=== PATIENT | male | born 1970 | race Hispanic/Latino ===

== ENCOUNTER 2019-02-24 15:53 | Emergency (ER) | payer MEDICARE ==
[2019-02-24] MEDS ORDERED: DEXAMETHASONE SOD PHOSPHATE 10MG/ML 1ML VIAL ONE (16:18)
[2019-02-24] MEDS ORDERED: DIPHENHYDRAMINE HCL 25 MG CAPSULE ONE (16:18)
== END 2019-02-24 18:03 | disposition home or self-care (01) ==
LOC: EDH 15:53
DX: J02.9 Acute pharyngitis, unspecified (principal); L25.9 Unspecified contact dermatitis, unspecified cause; E11.9 Type 2 diabetes mellitus without complications; I10 Essential (primary) hypertension; E78.5 Hyperlipidemia, unspecified; F32.9 Major depressive disorder, single episode, unspecified; Z98.890 Other specified postprocedural states
CPT/HCPCS: 87880; 96372; 99283; J1100; Q0163

== ENCOUNTER 2019-02-24 18:42 | Emergency (ER) | payer MEDICARE ==
[2019-02-24] MEDS ORDERED: LORAZEPAM 2 MG/ML 1 ML VIAL ONE ×2 (18:45→18:49)
[2019-02-24 19:10] LABS: BASOPHILS % (AUTO) 0.5 % (0.0-5.0); EOSINOPHILS % (AUTO) 0.6 % (0.0-8.0); HEMATOCRIT 41.3 % (42-54); LYMPHOCYTES % (AUTO) 16.1 % (21.0-51.0); MEAN CORPUSCULAR HEMOGLOBIN 34.3 pg (27.0-33.0); MEAN CORPUSCULAR HGB CONC 35.5 g/dL (32.0-36.0); MEAN CORPUSCULAR VOLUME 96.5 fL (79-99); MONOCYTES % (AUTO) 3.2 % (3.0-13.0); NEUTROPHILS % (AUTO) 79.6 % (40.0-77.0); NUCLEATED RED BLOOD CELLS 0.1 % (0.0-0.19); PLATELET COUNT (AUTO) 144 K/uL (130-400); RED BLOOD CELL COUNT(AUTO) 4.28 MIL/uL (4.50-6.20); RED CELL DISTRIBUTION WIDTH 13.2 % (11.0-15.5); WHITE BLOOD COUNT (AUTO) 4.5 K/uL (4.8-10.8)
[2019-02-24 19:21] LABS: POTASSIUM 3.8 mmol/L (3.5-5.1)
[2019-02-24 19:26] LABS: INR 0.93 (0.85-1.15); PROTHROMBIN TIME 9.8 SEC (9.6-11.6)
[2019-02-24 19:30] LABS: B-TYPE NATRIURETIC PEPTIDE 7 pg/mL (0-100)
[2019-02-24 19:32] LABS: ALBUMIN 4.1 g/dL (3.5-5.0); BILIRUBIN,TOTAL 0.3 mg/dL (0.2-1.0); TOTAL PROTEIN, SERUM 7.4 g/dL (6.0-8.3)
[2019-02-24] MEDS ORDERED: ASPIRIN 325 MG TABLET ONE (19:57)
[2019-02-24] MEDS ORDERED: ACETAMINOPHEN 325 MG TAB ONE (21:16)
== END 2019-02-24 22:24 | disposition home or self-care (01) ==
LOC: EDH 18:42
DX: R56.9 Unspecified convulsions (principal); F32.9 Major depressive disorder, single episode, unspecified; E11.9 Type 2 diabetes mellitus without complications; E78.5 Hyperlipidemia, unspecified; I10 Essential (primary) hypertension; Z79.899 Other long term (current) drug therapy
CPT/HCPCS: 36415; 71045; 80053; 82550; 83874; 83880; 84484; 85025; 85610; 85730; 93005; 96374; 99285; J2060 ×2

== ENCOUNTER 2019-03-05 04:52 | Emergency (ER) | payer MEDICARE ==
[2019-03-05] MEDS ORDERED: LEVETIRACETAM 500 MG/5 ML SD VIAL IV ONE (06:34)
[2019-03-05] MEDS ORDERED: SODIUM CHLORIDE 0.9% 100 ML IV ONE (06:39)
[2019-03-05] MEDS ORDERED: CEFTRIAXONE SODIUM 1 GM ONE (06:39)
[2019-03-05] MEDS ORDERED: MORPHINE SULFATE 2 MG/ML 1ML SYG ONE (06:40)
[2019-03-05] MEDS ORDERED: SODIUM CHLORIDE 0.9% 1000ML 1,000 ML IV ONE (06:42)
[2019-03-05 06:43] LABS: BASOPHILS % (AUTO) 0.7 % (0.0-5.0); EOSINOPHILS % (AUTO) 1.9 % (0.0-8.0); HEMATOCRIT 36.5 % (42-54); LYMPHOCYTES % (AUTO) 47.2 % (21.0-51.0); MEAN CORPUSCULAR HEMOGLOBIN 33.4 pg (27.0-33.0); MEAN CORPUSCULAR HGB CONC 34.8 g/dL (32.0-36.0); MEAN CORPUSCULAR VOLUME 95.8 fL (79-99); MONOCYTES % (AUTO) 14.2 % (3.0-13.0); NUCLEATED RED BLOOD CELLS 0.1 % (0.0-0.19); PLATELET COUNT (AUTO) 129 K/uL (130-400); RED BLOOD CELL COUNT(AUTO) 3.81 MIL/uL (4.50-6.20)
[2019-03-05 06:55] LABS: INR 0.96 (0.85-1.15); PARTIAL THROMBOPLASTIN TIME 25.4 SEC (26.3-35.5); PROTHROMBIN TIME 10.1 SEC (9.6-11.6)
[2019-03-05 06:56] LABS: CREATININE 0.8 mg/dL (0.5-1.5); POTASSIUM 3.8 mmol/L (3.5-5.1)
[2019-03-05 07:02] LABS: ALBUMIN 3.6 g/dL (3.5-5.0); BILIRUBIN,TOTAL 0.3 mg/dL (0.2-1.0); CARBAMAZEPINE (TEGRETOL) 9.3 mcg/mL (4.0-12.0); TOTAL PROTEIN, SERUM 6.5 g/dL (6.0-8.3)
[2019-03-05 07:17] LABS: B-TYPE NATRIURETIC PEPTIDE < 5 pg/mL (0-100)
== END 2019-03-05 09:08 | disposition home or self-care (01) ==
LOC: EDH 04:52
DX: G40.909 Epilepsy, unspecified, not intractable, without status epilepticus (principal); F32.9 Major depressive disorder, single episode, unspecified; E11.9 Type 2 diabetes mellitus without complications; E78.5 Hyperlipidemia, unspecified; I10 Essential (primary) hypertension; Z79.899 Other long term (current) drug therapy; Z88.8 Allergy status to other drugs, medicaments and biological substances
CPT/HCPCS: 36415; 71045; 80053; 80156; 82550; 83605; 83880; 84484; 85025; 85610; 85730; 93005; 96365; 96366; 99285; J1953; J7030; J0696

== ENCOUNTER 2019-03-12 15:01 | Emergency (ER) | payer MEDICARE ==
[2019-03-12 15:43] LABS: BASOPHILS % (AUTO) 0.7 % (0.0-5.0); EOSINOPHILS % (AUTO) 1.1 % (0.0-8.0); HEMATOCRIT 38.4 % (42-54); LYMPHOCYTES % (AUTO) 33.6 % (21.0-51.0); MEAN CORPUSCULAR HEMOGLOBIN 33.6 pg (27.0-33.0); MEAN CORPUSCULAR HGB CONC 35.4 g/dL (32.0-36.0); MEAN CORPUSCULAR VOLUME 94.7 fL (79-99); MONOCYTES % (AUTO) 9.2 % (3.0-13.0); NEUTROPHILS % (AUTO) 55.4 % (40.0-77.0); NUCLEATED RED BLOOD CELLS 0.1 % (0.0-0.19); PLATELET COUNT (AUTO) 144 K/uL (130-400); RED BLOOD CELL COUNT(AUTO) 4.06 MIL/uL (4.50-6.20); RED CELL DISTRIBUTION WIDTH 12.8 % (11.0-15.5); WHITE BLOOD COUNT (AUTO) 3.2 K/uL (4.8-10.8)
[2019-03-12 15:53] LABS: CREATININE 0.7 mg/dL (0.5-1.5); POTASSIUM 3.7 mmol/L (3.5-5.1)
[2019-03-12 15:59] LABS: ALBUMIN 3.7 g/dL (3.5-5.0); BILIRUBIN,TOTAL 0.4 mg/dL (0.2-1.0); CARBAMAZEPINE (TEGRETOL) 9.1 mcg/mL (4.0-12.0); TOTAL PROTEIN, SERUM 6.6 g/dL (6.0-8.3)
[2019-03-12] MEDS ORDERED: SODIUM CHLORIDE 0.9% 1000ML 1,000 ML IV ONE (16:11)
[2019-03-12 16:18] LABS: INR 0.95 (0.85-1.15)
[2019-03-12 16:21] LABS: APPEARANCE,URINE Clear (CLEAR); BILIRUBIN,URINE Negative (NEGATIVE); COLOR,URINE Yellow (YELLOW); GLUCOSE, URINE (UA) Negative (NEGATIVE); KETONES,URINE Negative (NEGATIVE); LEUKOCYTE ESTERASE ,URINE Negative (NEGATIVE); NITRATE,URINE Negative (NEGATIVE); OCCULT BLOOD,URINE Negative (NEGATIVE); PROTEIN,URINE Negative (NEGATIVE); UROBILINOGEN,URINE 0.2 mg/dL (0.2-1.0)
[2019-03-12 16:27] LABS: AMPHET/METH SCREEN,URINE NEGATIVE (NEGATIVE); BARBITURATE SCREEN, URINE NEGATIVE (NEGATIVE); BENZODIAZEPINES SCREEN,URINE POSITIVE (NEGATIVE); CANNABINOID SCREEN,URINE NEGATIVE (NEGATIVE); COCAINE SCREEN,URINE NEGATIVE (NEGATIVE); OPIATE SCREEN,URINE NEGATIVE (NEGATIVE); PHENCYCLIDINE SCREEN,URINE NEGATIVE (NEGATIVE)
== END 2019-03-12 18:46 ==
LOC: EDH 15:01
DX: G40.909 Epilepsy, unspecified, not intractable, without status epilepticus (principal); E11.9 Type 2 diabetes mellitus without complications; E87.1 Hypo-osmolality and hyponatremia; E78.5 Hyperlipidemia, unspecified; I10 Essential (primary) hypertension; F32.9 Major depressive disorder, single episode, unspecified; Z88.8 Allergy status to other drugs, medicaments and biological substances
CPT/HCPCS: 36415; 70450; 71045; 80053; 80156; 80177; 80305; 81003; 82550; 83930; 83935; 84443; 84484; 85025; 85610; 85730; 93005; 99285; J7030

== ENCOUNTER → 2019-06-23 | Outpatient (CLI) | payer MEDICARE | END | disposition home or self-care (01) | LOC: RAH 12:43 | PROVIDERS: ATTEND Family Medicine | DX: M54.16 Radiculopathy, lumbar region (principal); M54.5 Low back pain | CPT/HCPCS: 72131 ==

== ENCOUNTER 2022-09-14 02:03 | Emergency (ER) | payer MEDICARE ==
[2022-09-14 02:18] LABS: HEMATOCRIT 40.3 % (42-54); MEAN CORPUSCULAR HGB CONC 35.7 g/dL (32.0-36.0); MEAN CORPUSCULAR VOLUME 92.2 fL (79-99); PLATELET COUNT (AUTO) 167 K/uL (130-400); RED BLOOD CELL COUNT(AUTO) 4.37 MIL/uL (4.50-6.20); RED CELL DISTRIBUTION WIDTH 11.7 % (11.0-15.5)
[2022-09-14 02:27] LABS: BASOPHILS % (AUTO) 0.3 % (0.0-5.0); CREATININE 0.9 mg/dL (0.5-1.5); EOSINOPHILS % (AUTO) 8.2 % (0.0-8.0); LYMPHOCYTES % (AUTO) 36.4 % (21.0-51.0); MONOCYTES % (AUTO) 7.4 % (3.0-13.0); NEUTROPHILS % (AUTO) 47.4 % (40.0-77.0); POTASSIUM 3.4 mmol/L (3.5-5.1)
[2022-09-14 02:32] LABS: ALBUMIN 3.8 g/dL (3.5-5.0); TOTAL PROTEIN, SERUM 6.8 g/dL (6.0-8.3)
[2022-09-14 06:06] VITALS: BP 105/62
== END 2022-09-14 06:30 | disposition home or self-care (01) ==
LOC: EDH 02:03
DX: R56.9 Unspecified convulsions (principal); R00.2 Palpitations; R06.00 Dyspnea, unspecified; F32.9 Major depressive disorder, single episode, unspecified; E11.9 Type 2 diabetes mellitus without complications; E78.00 Pure hypercholesterolemia, unspecified; I10 Essential (primary) hypertension; Z20.822 Contact with and (suspected) exposure to COVID-19
CPT/HCPCS: 99285; 80156; 84484 ×2; 80053; 85025; 87880; 87804 ×2; 36415; 87635; 71045; 93005; 80177; C9803

== ENCOUNTER 2022-12-18 21:41 | Emergency (ER) | payer MEDICARE ==
[~2022-12-18] VITALS: Ht 167.6 cm; Wt 88.0 kg
[2022-12-18] MEDS ORDERED: TAMS-1 PO (22:26)
[2022-12-18] MEDS ORDERED: CLON1TAB12 PO (22:26)
[2022-12-18] MEDS ORDERED: HYDR12.54 PO (22:26)
[2022-12-18] MEDS ORDERED: CARB100T4 PO (22:26)
[2022-12-18] MEDS ORDERED: LACO200T4 PO (22:26)
[2022-12-18] MEDS ORDERED: LEVE500T19 PO (22:26)
[2022-12-18] MEDS ORDERED: TOPI100T37 PO (22:26)
[2022-12-18] MEDS ORDERED: METO25TA6 PO (22:26)
[2022-12-18 22:30] LABS: BASOPHILS % (AUTO) 0.9 % (0.0-5.0); EOSINOPHILS % (AUTO) 6.9 % (0.0-8.0); HEMATOCRIT 40.9 % (42-54); LYMPHOCYTES % (AUTO) 38.9 % (21.0-51.0); MEAN CORPUSCULAR HEMOGLOBIN 32.7 pg (27.0-33.0); MEAN CORPUSCULAR VOLUME 93.6 fL (79-99); MONOCYTES % (AUTO) 12.3 % (3.0-13.0); NEUTROPHILS % (AUTO) 40.8 % (40.0-77.0); PLATELET COUNT (AUTO) 159 K/uL (130-400); RED BLOOD CELL COUNT(AUTO) 4.37 MIL/uL (4.50-6.20); RED CELL DISTRIBUTION WIDTH 12.2 % (11.0-15.5); WHITE BLOOD COUNT (AUTO) 4.5 K/uL (4.8-10.8)
[2022-12-18] MEDS ORDERED: LORAZEPAM 2 MG/ML 1 ML VIAL IVP ONE (22:30)
[2022-12-18 22:46] LABS: ALBUMIN 3.8 g/dL (3.5-5.0); CARBAMAZEPINE (TEGRETOL) 10.6 mcg/mL (4.0-12.0); TOTAL PROTEIN, SERUM 6.5 g/dL (6.0-8.3)
[2022-12-19 00:40] VITALS: BP 114/81
== END 2022-12-19 00:47 | disposition home or self-care (01) ==
LOC: EDH 21:41
DX: S09.90XA Unspecified injury of head, initial encounter (principal); G40.909 Epilepsy, unspecified, not intractable, without status epilepticus; Z79.899 Other long term (current) drug therapy; Z95.810 Presence of automatic (implantable) cardiac defibrillator; W01.10XA Fall on same level from slipping, tripping and stumbling with subsequent striking against unspecified object, initial encounter; Y93.89 Activity, other specified; Y92.89 Other specified places as the place of occurrence of the external cause; Y99.8 Other external cause status
CPT/HCPCS: 99285; 96374; 70450; 80156; 84484; 80053; 85025; 36415; J2060

== ENCOUNTER 2022-12-22 08:55 | Emergency (ER) | payer MEDICARE ==
[~2022-12-22] VITALS: Ht 167.6 cm; Wt 87.1 kg
[~2022-12-22 08:55] MED LIST: CARB100T4 PO; CLON1TAB12 PO; HYDR12.54 PO; LACO200T4 PO; LEVE500T19 PO; METO25TA6 PO; TAMS-1 PO; TOPI100T37 PO
[2022-12-22] MEDS ORDERED: LEVETIRACETAM 500 MG/5 ML SD VIAL IV STA (09:10)
[2022-12-22 09:15] LABS: BASOPHILS % (AUTO) 0.7 % (0.0-5.0); EOSINOPHILS % (AUTO) 7.2 % (0.0-8.0); HEMATOCRIT 38.7 % (42-54); LYMPHOCYTES % (AUTO) 40.5 % (21.0-51.0); MEAN CORPUSCULAR HEMOGLOBIN 32.3 pg (27.0-33.0); MEAN CORPUSCULAR HGB CONC 34.4 g/dL (32.0-36.0); MEAN CORPUSCULAR VOLUME 93.9 fL (79-99); MONOCYTES % (AUTO) 12.4 % (3.0-13.0); PLATELET COUNT (AUTO) 140 K/uL (130-400); RED BLOOD CELL COUNT(AUTO) 4.12 MIL/uL (4.50-6.20); RED CELL DISTRIBUTION WIDTH 12.1 % (11.0-15.5)
[2022-12-22 09:22] LABS: APPEARANCE,URINE CLEAR (CLEAR); BILIRUBIN,URINE NEGATIVE (NEGATIVE); COLOR,URINE COLORLESS (YELLOW); GLUCOSE, URINE (UA) NEGATIVE (NEGATIVE); KETONES,URINE NEGATIVE (NEGATIVE); LEUKOCYTE ESTERASE ,URINE NEGATIVE Leu/uL (NEGATIVE); NITRATE,URINE NEGATIVE (NEGATIVE); OCCULT BLOOD,URINE NEGATIVE (NEGATIVE); PROTEIN,URINE NEGATIVE (NEGATIVE); UROBILINOGEN,URINE 0.2 mg/dL (0.2-1.0)
[2022-12-22 09:29] LABS: ALBUMIN 3.6 g/dL (3.5-5.0); CARBAMAZEPINE (TEGRETOL) 6.5 mcg/mL (4.0-12.0); CREATININE 0.8 mg/dL (0.5-1.5); POTASSIUM 3.5 mmol/L (3.5-5.1); TOTAL PROTEIN, SERUM 6.4 g/dL (6.0-8.3)
[2022-12-22 09:32] LABS: AMPHET/METH SCREEN,URINE NEGATIVE (NEGATIVE); BARBITURATE SCREEN, URINE NEGATIVE (NEGATIVE); BENZODIAZEPINES SCREEN,URINE NEGATIVE (NEGATIVE); CANNABINOID SCREEN,URINE POSITIVE (NEGATIVE); COCAINE SCREEN,URINE NEGATIVE (NEGATIVE); OPIATE SCREEN,URINE NEGATIVE (NEGATIVE); PHENCYCLIDINE SCREEN,URINE NEGATIVE (NEGATIVE)
[2022-12-22 11:07] VITALS: BP 94/59
== END 2022-12-22 11:08 | disposition home or self-care (01) ==
LOC: EDH 08:55
DX: R56.9 Unspecified convulsions (principal); F12.10 Cannabis abuse, uncomplicated; I10 Essential (primary) hypertension; E11.9 Type 2 diabetes mellitus without complications; Z79.899 Other long term (current) drug therapy; Z88.8 Allergy status to other drugs, medicaments and biological substances
CPT/HCPCS: 99284; 96365; 80156; 80053; 80305; 85025; 36415; 80177; 81003; J1953

== ENCOUNTER 2023-01-30 05:40 | Observation (INO) | payer MEDICARE ==
[~2023-01-30] VITALS: Ht 170.2 cm; Wt 84.7 kg
[2023-01-30 06:25] LABS: BASOPHILS % (AUTO) 0.7 % (0.0-5.0); EOSINOPHILS % (AUTO) 4.9 % (0.0-8.0); HEMATOCRIT 38.1 % (42-54); LYMPHOCYTES % (AUTO) 34.5 % (21.0-51.0); MEAN CORPUSCULAR HEMOGLOBIN 32.8 pg (27.0-33.0); MEAN CORPUSCULAR HGB CONC 36.2 g/dL (32.0-36.0); MEAN CORPUSCULAR VOLUME 90.5 fL (79-99); MONOCYTES % (AUTO) 11.9 % (3.0-13.0); NEUTROPHILS % (AUTO) 47.8 % (40.0-77.0); PLATELET COUNT (AUTO) 134 K/uL (130-400); RED BLOOD CELL COUNT(AUTO) 4.21 MIL/uL (4.50-6.20); RED CELL DISTRIBUTION WIDTH 11.6 % (11.0-15.5); WHITE BLOOD COUNT (AUTO) 4.5 K/uL (4.8-10.8)
[2023-01-30] MEDS ORDERED: LORAZEPAM 2 MG/ML 1 ML VIAL IVP ONE (06:30)
[2023-01-30 06:38] LABS: ALBUMIN 3.7 g/dL (3.5-5.0); CREATININE 0.7 mg/dL (0.5-1.5)
[2023-01-30 06:40] LABS: POTASSIUM 2.9 mmol/L (3.5-5.1)
[2023-01-30 06:43] LABS: TOTAL PROTEIN, SERUM 6.6 g/dL (6.0-8.3)
[2023-01-30] MEDS: POTASSIUM CHLORIDE 10% ELIXIR 20 MEQ/15 ML UDCUP ONE ×2 (06:58→07:49)
[2023-01-30] MEDS ORDERED: POTASSIUM CHLORIDE 10% ELIXIR 20 MEQ/15 ML UDCUP PO ONE (07:00)
[2023-01-30] MEDS ORDERED: LEVETIRACETAM 1,000 MG in 0.9%NACL 100ML 100 ML IV STA (07:47)
[2023-01-30] MEDS ORDERED: LORAZEPAM 2 MG/ML 1 ML VIAL IM PRN (09:00)
[2023-01-30] MEDS ORDERED: POTASSIUM CHLORIDE 20MEQ/100ML 100 ML IV PRN (09:00)
[2023-01-30] MEDS: 0.9%NACL 1000ML 1,000 ML IV SCH ×2 (09:47→23:20)
[2023-01-30] MEDS ORDERED: ONDANSETRON 4MG INJ IVP PRN (10:00)
[2023-01-30] MEDS ORDERED: 0.9% NACL 500ML IV.SOLN 500 ML IV ONE (10:00)
[2023-01-30] MEDS ORDERED: ACETAMINOPHEN 325 MG TAB PO PRN (10:00)
[2023-01-30 16:39] VITALS: BP 105/70
[2023-01-30] MEDS ORDERED: LORA10TA7 PO (17:28)
[2023-01-30] MEDS ORDERED: LEVE10006 PO (17:28)
[2023-01-30] MEDS ORDERED: OMEP40CA21 PO (17:28)
[2023-01-30 18:40] LABS: POTASSIUM 3.9 mmol/L (3.5-5.1)
[2023-01-30 20:00] VITALS: BP 108/73
[2023-01-30] MEDS: TOPIRAMATE 100 MG TAB PO SCH (20:43)
[2023-01-30] MEDS: METOPROLOL TARTRATE 25 MG TAB PO SCH (20:43)
[2023-01-30] MEDS ORDERED: TOPIRAMATE 25 MG TABLET PO SCH (21:00)
[2023-01-30] MEDS: LACOSAMIDE 200 MG PO SCH (21:00)
[2023-01-30 23:34] VITALS: BP 115/68
[2023-01-31 04:00] VITALS: BP 98/57
[2023-01-31 07:00] VITALS: BP 106/67
[2023-01-31] MEDS ORDERED: LEVE10006 PO (08:30)
[2023-01-31 08:46] LABS: HEMATOCRIT 39.1 % (42-54); MEAN CORPUSCULAR HEMOGLOBIN 31.8 pg (27.0-33.0); MEAN CORPUSCULAR HGB CONC 34.3 g/dL (32.0-36.0); MEAN CORPUSCULAR VOLUME 92.9 fL (79-99); RED BLOOD CELL COUNT(AUTO) 4.21 MIL/uL (4.50-6.20); RED CELL DISTRIBUTION WIDTH 11.9 % (11.0-15.5); WHITE BLOOD COUNT (AUTO) 3.8 K/uL (4.8-10.8)
[2023-01-31] MEDS ORDERED: LEVETIRACETAM 500 MG TABLET PO ONE (08:53)
[2023-01-31 08:56] LABS: CREATININE 0.8 mg/dL (0.5-1.5); POTASSIUM 4.2 mmol/L (3.5-5.1)
[2023-01-31] MEDS ORDERED: FAMOTIDINE 20MG VIAL IV SCH (09:00)
[2023-01-31] MEDS ORDERED: LORATADINE 10 MG TABLET PO SCH (09:00)
[2023-01-31] MEDS ORDERED: LEVETIRACETAM 500 MG TABLET PO SCH (09:00)
[2023-01-31] MEDS ORDERED: HYDROCHLOROTHIAZIDE 25 MG TABLET PO SCH (09:00)
[2023-01-31] MEDS ORDERED: TAMSULOSIN HCL 0.4 MG CAP.ER.24H PO SCH (09:00)
[2023-01-31] MEDS: TOPIRAMATE 100 MG TAB PO SCH (09:37)
[2023-01-31] MEDS: METOPROLOL TARTRATE 25 MG TAB PO SCH (09:38)
[2023-01-31] MEDS: LACOSAMIDE 200 MG PO SCH (09:39)
[2023-01-31 11:00] VITALS: BP 100/60
[2023-01-31] MEDS ORDERED: TOPI100T37 PO (12:50)
== END 2023-01-31 16:01 | disposition home or self-care (01) ==
LOC: EDH 05:40 → INTOOBSV 08:38 → EDHIP 08:38 → 2AH 16:36
PROVIDERS: ADMIT Hospitalist; ATTEND Hospitalist
DX: R56.9 Unspecified convulsions (principal); I95.9 Hypotension, unspecified; E87.6 Hypokalemia; F41.9 Anxiety disorder, unspecified; Z79.899 Other long term (current) drug therapy
CPT/HCPCS: 99285; 96365; 70450; 96375 ×2; 83735; 84132; 80053; 85025; 82948; 36415 ×2; 80201; 80177; 80048; 85027; J1953; J2060; G0378; J3490; 96361

== ENCOUNTER 2023-05-04 19:23 | Emergency (ER) | payer MEDICARE ==
[~2023-05-04] VITALS: Ht 170.2 cm; Wt 77.1 kg
[~2023-05-04 19:23] MED LIST changes: -CARB100T4 PO; +LEVE10006 PO; -LEVE500T19 PO; +LORA10TA7 PO; +OMEP40CA21 PO
[2023-05-04 19:47] LABS: BASOPHILS # (AUTO) 0.02 K/uL (0.00-0.20); BASOPHILS % (AUTO) 0.5 % (0.0-5.0); EOSINOPHILS % (AUTO) 8.1 % (0.0-8.0); HEMATOCRIT 36.1 % (42-54); IMMATURE GRANULOCYTE ABSOLUTE 0.02 K/uL (0-1); LYMPHOCYTES # (AUTO) 1.5 K/uL (1.0-4.8); LYMPHOCYTES % (AUTO) 40.5 % (21.0-51.0); MEAN CORPUSCULAR HEMOGLOBIN 32.2 pg (27.0-33.0); MEAN CORPUSCULAR HGB CONC 34.6 g/dL (32.0-36.0); MONOCYTES # (AUTO) 0.4 K/uL (0.1-1.0); MONOCYTES % (AUTO) 11.9 % (3.0-13.0); NEUTROPHILS # (AUTO) 1.4 K/uL (1.8-7.7); NEUTROPHILS % (AUTO) 38.5 % (40.0-77.0); PLATELET COUNT (AUTO) 129 K/uL (130-400); RED BLOOD CELL COUNT(AUTO) 3.88 MIL/uL (4.50-6.20); RED CELL DISTRIBUTION WIDTH 11.9 % (11.0-15.5); WHITE BLOOD COUNT (AUTO) 3.7 K/uL (4.8-10.8)
[2023-05-04 20:06] LABS: ALBUMIN 3.3 g/dL (3.5-5.0); BILIRUBIN,TOTAL 0.3 mg/dL (0.2-1.0); CREATININE 0.7 mg/dL (0.5-1.5); POTASSIUM 3.8 mmol/L (3.5-5.1); TOTAL PROTEIN, SERUM 6.2 g/dL (6.0-8.3)
[2023-05-04 21:36] LABS: APPEARANCE,URINE CLEAR (CLEAR); BILIRUBIN,URINE NEGATIVE (NEGATIVE); COLOR,URINE COLORLESS (YELLOW); GLUCOSE, URINE (UA) NEGATIVE (NEGATIVE); KETONES,URINE NEGATIVE (NEGATIVE); LEUKOCYTE ESTERASE ,URINE NEGATIVE Leu/uL (NEGATIVE); NITRATE,URINE NEGATIVE (NEGATIVE); OCCULT BLOOD,URINE NEGATIVE (NEGATIVE); PH,URINE 6.5 (5.0-8.0); PROTEIN,URINE NEGATIVE (NEGATIVE); UROBILINOGEN,URINE 0.2 mg/dL (0.2-1.0)
[2023-05-04 21:45] LABS: ADD UA MICROSCOPIC YES
[2023-05-04] MEDS ORDERED: ACETAMINOPHEN 500 MG TABLET PO ONE (22:30)
[2023-05-04 22:51] VITALS: BP 109/65; PULSE 65; RESP 17; O2SAT 97
== END 2023-05-04 22:56 | disposition home or self-care (01) ==
LOC: EDH 19:23
DX: G40.909 Epilepsy, unspecified, not intractable, without status epilepticus (principal); I10 Essential (primary) hypertension; Z79.899 Other long term (current) drug therapy
CPT/HCPCS: 36415; 80053; 81001; 84484; 85025; 93005

== ENCOUNTER 2023-05-14 08:05 | Emergency (ER) | payer MEDICARE ==
[~2023-05-14] VITALS: Ht 170.2 cm; Wt 79.4 kg
[2023-05-14 08:54] LABS: BASOPHILS # (AUTO) 0.02 K/uL (0.00-0.20); BASOPHILS % (AUTO) 0.5 % (0.0-5.0); EOSINOPHILS # (AUTO) 0.24 K/uL (0.00-0.70); HEMATOCRIT 37.6 % (42-54); IMMATURE GRANULOCYTE ABSOLUTE 0.02 K/uL (0-1); LYMPHOCYTES # (AUTO) 1.2 K/uL (1.0-4.8); LYMPHOCYTES % (AUTO) 31.2 % (21.0-51.0); MEAN CORPUSCULAR HEMOGLOBIN 32.8 pg (27.0-33.0); MEAN CORPUSCULAR HGB CONC 34.8 g/dL (32.0-36.0); MONOCYTES # (AUTO) 0.4 K/uL (0.1-1.0); MONOCYTES % (AUTO) 10.1 % (3.0-13.0); NEUTROPHILS # (AUTO) 2.1 K/uL (1.8-7.7); NEUTROPHILS % (AUTO) 51.7 % (40.0-77.0); PLATELET COUNT (AUTO) 134 K/uL (130-400); RED CELL DISTRIBUTION WIDTH 11.9 % (11.0-15.5)
[2023-05-14 09:10] LABS: ALBUMIN 3.5 g/dL (3.5-5.0); BILIRUBIN,TOTAL 0.3 mg/dL (0.2-1.0); CREATININE 0.7 mg/dL (0.5-1.5); POTASSIUM 3.4 mmol/L (3.5-5.1); TOTAL PROTEIN, SERUM 6.5 g/dL (6.0-8.3)
[2023-05-14 10:24] VITALS: BP 112/80; PULSE 74; RESP 18; O2SAT 99
[2023-05-14] MEDS ORDERED: DIAZEPAM 5 MG TABLET PO ONE (10:30)
== END 2023-05-14 10:50 | disposition home or self-care (01) ==
LOC: EDH 08:05
DX: G40.909 Epilepsy, unspecified, not intractable, without status epilepticus (principal); I10 Essential (primary) hypertension; Z79.899 Other long term (current) drug therapy
CPT/HCPCS: 36415; 80053; 84484; 85025; 93005

== ENCOUNTER 2023-07-12 06:20 | Emergency (ER) | payer MEDICARE ==
[2023-07-12] MEDS ORDERED: LEVETIRACETAM 500 MG/5 ML SD VIAL IV ONE ×2 (13:57→14:42)
[2023-07-12 19:40] LABS: AMPHET/METH SCREEN,URINE NEGATIVE (NEGATIVE); BARBITURATE SCREEN, URINE NEGATIVE (NEGATIVE); BENZODIAZEPINES SCREEN,URINE NEGATIVE (NEGATIVE); CANNABINOID SCREEN,URINE NEGATIVE (NEGATIVE); COCAINE SCREEN,URINE NEGATIVE (NEGATIVE); OPIATE SCREEN,URINE NEGATIVE (NEGATIVE); PHENCYCLIDINE SCREEN,URINE NEGATIVE (NEGATIVE)
[2023-07-12 19:46] LABS: ADD UA MICROSCOPIC NO; APPEARANCE,URINE CLEAR (CLEAR); BILIRUBIN,URINE NEGATIVE (NEGATIVE); COLOR,URINE Light-Yellow (YELLOW); GLUCOSE, URINE (UA) NEGATIVE (NEGATIVE); KETONES,URINE NEGATIVE (NEGATIVE); OCCULT BLOOD,URINE NEGATIVE (NEGATIVE); PH,URINE 6.5 (5.0-8.0); PROTEIN,URINE NEGATIVE (NEGATIVE); UROBILINOGEN,URINE 0.2 mg/dL (0.2-1.0)
[2023-07-12 19:47] LABS: LEUKOCYTE ESTERASE ,URINE NEGATIVE Leu/uL (NEGATIVE); NITRATE,URINE NEGATIVE (NEGATIVE)
[2023-07-12 19:53] LABS: BASOPHILS # (AUTO) 0.02 K/uL (0.00-0.20); BASOPHILS % (AUTO) 0.5 % (0.0-5.0); EOSINOPHILS # (AUTO) 0.14 K/uL (0.00-0.70); EOSINOPHILS % (AUTO) 3.8 % (0.0-8.0); HEMATOCRIT 36.8 % (42-54); IMMATURE GRANULOCYTE ABSOLUTE 0.01 K/uL (0-1); LYMPHOCYTES # (AUTO) 1.6 K/uL (1.0-4.8); LYMPHOCYTES % (AUTO) 43.3 % (21.0-51.0); MEAN CORPUSCULAR HEMOGLOBIN 32.9 pg (27.0-33.0); MEAN CORPUSCULAR HGB CONC 34.5 g/dL (32.0-36.0); MEAN CORPUSCULAR VOLUME 95.3 fL (79-99); MONOCYTES # (AUTO) 0.3 K/uL (0.1-1.0); MONOCYTES % (AUTO) 7.8 % (3.0-13.0); NEUTROPHILS # (AUTO) 1.7 K/uL (1.8-7.7); NEUTROPHILS % (AUTO) 44.3 % (40.0-77.0); PLATELET COUNT (AUTO) 145 K/uL (130-400); RED BLOOD CELL COUNT(AUTO) 3.86 MIL/uL (4.50-6.20); RED CELL DISTRIBUTION WIDTH 11.9 % (11.0-15.5); WHITE BLOOD COUNT (AUTO) 3.7 K/uL (4.8-10.8)
[2023-07-12 19:55] LABS: ALBUMIN 3.6 g/dL (3.5-5.0); BILIRUBIN,TOTAL 0.3 mg/dL (0.2-1.0); CARBAMAZEPINE (TEGRETOL) 7.7 mcg/mL (4.0-12.0); CREATININE 0.7 mg/dL (0.5-1.5); POTASSIUM 3.7 mmol/L (3.5-5.1); TOTAL PROTEIN, SERUM 6.4 g/dL (6.0-8.3)
[2023-07-12 20:10] LABS: INR 0.94 (0.85-1.15); PROTHROMBIN TIME 10.9 SEC (9.6-11.6)
[2023-07-12 20:11] LABS: PARTIAL THROMBOPLASTIN TIME 25.4 SEC (26.3-35.5)
== END 2023-07-12 15:32 | disposition home or self-care (01) ==
LOC: EDH 06:20
DX: G40.909 Epilepsy, unspecified, not intractable, without status epilepticus (principal); I10 Essential (primary) hypertension; Z98.890 Other specified postprocedural states
CPT/HCPCS: 99285; 71045; 80061; 80156; 82550; 83874; 84484; 80053; 80305; 85025; 85378; 85610; 85730; 36415; 93005; 80177; 81003; J1953 ×2

== ENCOUNTER 2024-02-03 07:43 | Emergency (ER) | payer MEDICARE ==
[~2024-02-03] VITALS: Ht 170.2 cm; Wt 88.5 kg
[2024-02-03] MEDS: LEVETIRACETAM 500 MG/5 ML SD VIAL IV SCH (08:02)
[2024-02-03 08:59] LABS: BASOPHILS # (AUTO) 0.02 K/uL (0.00-0.20); BASOPHILS % (AUTO) 0.6 % (0.0-5.0); EOSINOPHILS # (AUTO) 0.01 K/uL (0.00-0.70); EOSINOPHILS % (AUTO) 0.3 % (0.0-8.0); HEMATOCRIT 33.7 % (42-54); IMMATURE GRANULOCYTE ABSOLUTE 0.01 K/uL (0-1); LYMPHOCYTES % (AUTO) 33.1 % (21.0-51.0); MEAN CORPUSCULAR HEMOGLOBIN 33.1 pg (27.0-33.0); MEAN CORPUSCULAR HGB CONC 35.6 g/dL (32.0-36.0); MEAN CORPUSCULAR VOLUME 93.1 fL (79-99); MONOCYTES # (AUTO) 0.6 K/uL (0.1-1.0); NEUTROPHILS # (AUTO) 1.5 K/uL (1.8-7.7); NEUTROPHILS % (AUTO) 47.7 % (40.0-77.0); PLATELET COUNT (AUTO) 108 K/uL (130-400); RED BLOOD CELL COUNT(AUTO) 3.62 MIL/uL (4.50-6.20); RED CELL DISTRIBUTION WIDTH 11.3 % (11.0-15.5); WHITE BLOOD COUNT (AUTO) 3.1 K/uL (4.8-10.8)
[2024-02-03] MEDS: ACETAMINOPHEN 500 MG TABLET PO ONE (09:05)
[2024-02-03 09:54] LABS: CREATININE 0.8 mg/dL (0.5-1.3); POTASSIUM 3.5 mmol/L (3.5-5.1)
[2024-02-03 11:37] LABS: CARBAMAZEPINE (TEGRETOL) 5.3 mcg/mL (4.0-12.0)
[2024-02-03 11:49] LABS: ALBUMIN 3.3 g/dL (3.5-5.0); BILIRUBIN,TOTAL 0.2 mg/dL (0.2-1.0)
[2024-02-03 12:37] VITALS: BP 118/85; PULSE 57; RESP 15; O2SAT 99
== END 2024-02-03 13:11 | disposition home or self-care (01) ==
LOC: EDH 07:43
DX: G40.909 Epilepsy, unspecified, not intractable, without status epilepticus (principal); I10 Essential (primary) hypertension; Z79.899 Other long term (current) drug therapy; Z95.810 Presence of automatic (implantable) cardiac defibrillator
CPT/HCPCS: 99285; 96365; 80156; 80053; 85025; 36415; J1953

== ENCOUNTER 2024-03-05 | Emergency (ER) | payer MEDICARE ==
[~2024-03-05] VITALS: Ht 167.6 cm; Wt 83.5 kg
[2024-03-05] MEDS: LEVETIRACETAM 500 MG/5 ML SD VIAL IV SCH (00:45)
[2024-03-05 00:46] LABS: BASOPHILS # (AUTO) 0.02 K/uL (0.00-0.20); BASOPHILS % (AUTO) 0.6 % (0.0-5.0); EOSINOPHILS # (AUTO) 0.01 K/uL (0.00-0.70); EOSINOPHILS % (AUTO) 0.3 % (0.0-8.0); HEMATOCRIT 37.5 % (42-54); IMMATURE GRANULOCYTE ABSOLUTE 0.01 K/uL (0-1); LYMPHOCYTES # (AUTO) 1.8 K/uL (1.0-4.8); LYMPHOCYTES % (AUTO) 50.7 % (21.0-51.0); MEAN CORPUSCULAR HEMOGLOBIN 33.1 pg (27.0-33.0); MEAN CORPUSCULAR HGB CONC 35.5 g/dL (32.0-36.0); MEAN CORPUSCULAR VOLUME 93.3 fL (79-99); MONOCYTES # (AUTO) 0.3 K/uL (0.1-1.0); MONOCYTES % (AUTO) 9.6 % (3.0-13.0); NEUTROPHILS # (AUTO) 1.4 K/uL (1.8-7.7); NEUTROPHILS % (AUTO) 38.5 % (40.0-77.0); PLATELET COUNT (AUTO) 121 K/uL (130-400); RED BLOOD CELL COUNT(AUTO) 4.02 MIL/uL (4.50-6.20); RED CELL DISTRIBUTION WIDTH 11.9 % (11.0-15.5); WHITE BLOOD COUNT (AUTO) 3.6 K/uL (4.8-10.8)
[2024-03-05 01:00] LABS: CREATININE 0.8 mg/dL (0.5-1.3); POTASSIUM 3.6 mmol/L (3.5-5.1)
[2024-03-05] MEDS ORDERED: LEVE-43 PO (01:13)
[2024-03-05 01:22] VITALS: BP 139/90; PULSE 60; RESP 16; O2SAT 100
== END 2024-03-05 02:16 | disposition home or self-care (01) ==
LOC: EDH
DX: G40.909 Epilepsy, unspecified, not intractable, without status epilepticus (principal); I10 Essential (primary) hypertension; Z79.899 Other long term (current) drug therapy; Z98.890 Other specified postprocedural states; Z88.8 Allergy status to other drugs, medicaments and biological substances
CPT/HCPCS: 99284; 96365; 80048; 85025; 36415; J1953

== ENCOUNTER 2024-07-15 22:04 | Emergency (ER) | payer MEDICARE ==
[~2024-07-15] VITALS: Ht 167.6 cm; Wt 82.6 kg
[~2024-07-15 22:04] MED LIST changes: +LEVE-43 PO
[2024-07-15] MEDS ORDERED: SULF1TAB42 PO (22:43)
[2024-07-15] MEDS: cefTRIAXone 1G VIAL IM ONE (23:38)
[2024-07-15 23:41] VITALS: BP 118/89; PULSE 89; RESP 18; TEMP 98.8; O2SAT 98
== END 2024-07-15 23:50 | disposition home or self-care (01) ==
LOC: EDH 22:04
DX: S30.861A Insect bite (nonvenomous) of abdominal wall, initial encounter (principal); G40.909 Epilepsy, unspecified, not intractable, without status epilepticus; Z79.899 Other long term (current) drug therapy; Z88.8 Allergy status to other drugs, medicaments and biological substances; Z98.890 Other specified postprocedural states; W57.XXXA Bitten or stung by nonvenomous insect and other nonvenomous arthropods, initial encounter; Y93.89 Activity, other specified; Y92.89 Other specified places as the place of occurrence of the external cause; Y99.8 Other external cause status
CPT/HCPCS: 99283; 96372; J0696

== ENCOUNTER 2024-12-17 01:05 | Emergency (ER) | payer MEDICARE ==
[~2024-12-17] VITALS: Ht 170.2 cm; Wt 72.6 kg
[~2024-12-17 01:05] MED LIST changes: +SULF1TAB42 PO
[2024-12-17 01:47] LABS: BASOPHILS # (AUTO) 0.04 K/uL (0.00-0.20); EOSINOPHILS # (AUTO) 0.12 K/uL (0.00-0.70); EOSINOPHILS % (AUTO) 2.9 % (0.0-8.0); HEMATOCRIT 36.4 % (42-54); IMMATURE GRANULOCYTE ABSOLUTE 0.01 K/uL (0-1); LYMPHOCYTES # (AUTO) 1.3 K/uL (1.0-4.8); LYMPHOCYTES % (AUTO) 29.7 % (21.0-51.0); MEAN CORPUSCULAR HEMOGLOBIN 33.9 pg (27.0-33.0); MEAN CORPUSCULAR HGB CONC 34.1 g/dL (32.0-36.0); MEAN CORPUSCULAR VOLUME 99.5 fL (79-99); MONOCYTES # (AUTO) 0.6 K/uL (0.1-1.0); MONOCYTES % (AUTO) 13.5 % (3.0-13.0); NEUTROPHILS # (AUTO) 2.2 K/uL (1.8-7.7); NEUTROPHILS % (AUTO) 52.7 % (40.0-77.0); PLATELET COUNT (AUTO) 173 K/uL (130-400); RED BLOOD CELL COUNT(AUTO) 3.66 MIL/uL (4.50-6.20); RED CELL DISTRIBUTION WIDTH 12.2 % (11.0-15.5); WHITE BLOOD COUNT (AUTO) 4.2 K/uL (4.8-10.8)
[2024-12-17 01:55] LABS: CREATININE 0.7 mg/dL (0.5-1.3); POTASSIUM 4.5 mmol/L (3.5-5.1)
[2024-12-17 02:00] LABS: ALBUMIN 3.2 g/dL (3.5-5.0); BILIRUBIN,TOTAL 0.3 mg/dL (0.2-1.0); TOTAL PROTEIN, SERUM 6.5 g/dL (6.0-8.3)
--- NOTE | 2024-12-17 02:15 | ERN ---
ED Note History of Present Illness Stated Complaint: SEIZURE Chief Complaint: Seizure Time Seen by MD: 01:33 Dictation: This is a 54-year-old male who presented to the emergency room via EMS apparently sustained a seizure prior to EMS arrival. He has a known history of seizure disorder and takes Keppra carbamazepine and topiramate. He stated that he has is evening dinner and slept around 830 and thinks that he had a seizure as he bit his tongue and there was blood on his hand. He took a clonazepam which he takes as needed. He denied any fevers chills or rigors and he also denied any noncompliance or missing doses. He does state that he has not slept well in the last 3-4 days. In review of his medications, Vimpat bottle was empty so likely patient has not been taking this He denied any headache blurred vision diplopia facial asymmetry nausea vomitings Temperature 98.1 pulse 94 respirations 16 blood pressure 115/68 pulse oximetry 96%. Allergies: Coded Allergies: phenobarbital (Unverified Allergy, Unknown, 03/05/19) Home Meds Active Scripts Sulfamethoxazole/Trimethoprim (Bactrim Ds Tablet) 800 Mg-160 Mg Tablet, 1 TAB PO BID for 7 Days, #14 TAB 0 Refills Prov:HAILE GARCIA 07/15/24 Levetiracetam (Keppra) 500 Mg Tablet, 500 MG PO BID for 30 Days, #60 TAB 0 Refills Prov:DAVID BOWMAN MD 03/05/24 Topiramate (Topiramate) 100 Mg Tablet, 100 MG PO BID for 30 Days, #60 TAB Prov:MARY SRIVASTAVA NP 01/31/23 Reported Medications Levetiracetam (Levetiracetam) 1,000 Mg Tablet, 2000 MG PO BID, TAB 01/31/23 Omeprazole (Omeprazole) 40 Mg Capsule.dr, 40 MG PO DAILY, CAP 01/30/23 Loratadine (Loratadine) 10 Mg Tablet, 10 MG PO DAILY for allergy, TAB 01/30/23 Hydrochlorothiazide (Hydrochlorothiazide) 12.5 Mg Tablet, 12.5 MG PO DAILY, TAB 12/28/22 Tamsulosin HCl (Flomax) 0.4 Mg Cap.er.24h, 0.4 MG PO DAILY, CAPSULE. 12/28/22 Lacosamide (Lacosamide) 200 Mg Tablet, 200 MG PO BID, TAB 12/28/22 Metoprolol Tartrate (Metoprolol Tartrate) 25 Mg Tablet, 12.5 MG PO BID, TAB 12/28/22 Clonazepam (Clonazepam) 1 Mg Tablet, 1 MG PO BID PRN for AGITATION, TAB 12/18/22 Past Medical History Past Medical History: Seizure Additional Past Medical Hx: EPILEPSY Surgical History: Other Surgical History Other: VNS TO LEFT CHEST Social History: Negative, Lives with family RN Note Reviewed/Agreed w/PFSH: Yes Review of System Dictation Constitutional: Negative for fever,chills, and weight loss Eyes: Negative for injury, pain,redness, and discharge ENT: Negative for injury,pain or swelling Cardiovascular: Negative for chest pain, palpitations, and edema Respiratory: Negative for shortness of breath, cough, and wheezing, Abdomen/GI: Negative for abdominal pain, nausea, vomiting, diarrhea, and constipation Back: Negative for injury and pain : Negative for injury, bleeding and discharge MS/Extremity: Negative for injury and deformity Skin: Negative for rash, and discoloration Neuro: Negative for headache, weakness, numbness, tingling, and positive for seizure Psych: Negative for suicide ideation, homicidal ideation, and hallucinations Initial Vital Sign VS Vital Signs Date Time Temp Pulse Resp B/P (MAP) Pulse Ox O2 Delivery O2 Flow Rate FiO2 12/17/24 01:07 98.1 84 16 115/68 96 Room Air 0 12/17/24 01:32 21 Physical Exam Dictation General: he was initially drowsy but became veryawake, alert, NAD Head/Face: Normocephalic, atraumatic Eyes: PERRL, EOMI, vision at baseline ENT: oral cavity clear, TMs clear, no signs of infection right side lateral aspect of the tongue small area where he bit from his seizure Neck: Trachea midline, supple, no nuchal rigidity Cardiovascular: RRR, normal S1/S2, No MRGs, no JVD Respiratory: CTAB, no respiratory distress, No rales or wheezes Abdomen: Soft, non-tender, non-distended, normal bowel sounds, no guarding or rebound. Skin: Warm, dry, normal turgor, no rash MS/Extremity: Pulses equal, no cyanosis, neurovascular intact, FROM Neuro: COAx4, GCS 15, strength 5/5, CN 2-12 intact, normal cerebellar exam, normal gait, Psych: Normal behavior, mood, and affect normal Extremities-trace edema without any palpable cords, Homans sign is negative Results (Laboratory/Radiology) Laboratory/Radiology Laboratory Tests Test 12/17/24 01:37 12/17/24 02:56 White Blood Count 4.2 K/uL (4.8-10.8) L Red Blood Count 3.66 MIL/uL (4.50-6.20) L Hemoglobin 12.4 g/dL (14.0-18.0) L Hematocrit 36.4 % (42-54) L Mean Corpuscular Volume 99.5 fL (79-99) H Mean Corpuscular Hemoglobin 33.9 pg (27.0-33.0) H Mean Corpuscular Hemoglobin Concent 34.1 g/dL (32.0-36.0) Red Cell Distribution Width 12.2 % (11.0-15.5) Platelet Count 173 K/uL (130-400) Mean Platelet Volume 10.2 fL (7.5-10.5) Immature Granulocyte % (Auto) 0.2 % (0-1) Neutrophils (%) (Auto) 52.7 % (40.0-77.0) Lymphocytes (%) (Auto) 29.7 % (21.0-51.0) Monocytes (%) (Auto) 13.5 % (3.0-13.0) H Eosinophils (%) (Auto) 2.9 % (0.0-8.0) Basophils (%) (Auto) 1.0 % (0.0-5.0) Neutrophils # (Auto) 2.2 K/uL (1.8-7.7) Lymphocytes # (Auto) 1.3 K/uL (1.0-4.8) Monocytes # (Auto) 0.6 K/uL (0.1-1.0) Eosinophils # (Auto) 0.12 K/uL (0.00-0.70) Basophils # (Auto) 0.04 K/uL (0.00-0.20) Absolute Immature Granulocyte (auto 0.01 K/uL (0-1) Nucleated Red Blood Cells 0.0 % (0.0-0.19) Sodium Level 134 mmol/L (136-145) L Potassium Level 4.5 mmol/L (3.5-5.1) Chloride Level 103 mmol/L (101-111) Carbon Dioxide Level 24 mmol/L (21-32) Blood Urea Nitrogen 13 mg/dL (7-18) Creatinine 0.7 mg/dL (0.5-1.3) Glomerular Filtration Rate Calc 108 mL/min (>90) Random Glucose 84 mg/dL (70-105) Total Calcium 8.1 mg/dL (8.5-10.1) L Total Bilirubin 0.3 mg/dL (0.2-1.0) Aspartate Amino Transf (AST/SGOT) 23 U/L (10-37) Alanine Aminotransferase (ALT/SGPT) 13 U/L (12-78) Alkaline Phosphatase 128 U/L (50-136) Total Protein 6.5 g/dL (6.0-8.3) Albumin 3.2 g/dL (3.5-5.0) L Urine Color COLORLESS (YELLOW) Urine Appearance CLEAR (CLEAR) Urine pH 7.5 (5.0-8.0) Urine Specific [place] 1.011 (1.001-1.031) Urine Protein NEGATIVE mg/dL (NEGATIVE) Urine Glucose (UA) NEGATIVE mg/dL (NEGATIVE) Urine Ketones NEGATIVE mg/dL (NEGATIVE) Urine Occult Blood NEGATIVE (NEGATIVE) Urine Nitrate NEGATIVE (NEGATIVE) Urine Bilirubin NEGATIVE mg/dL (NEGATIVE) Urine Urobilinogen 0.2 mg/dL (0.2-1.0) Urine Leukocyte Esterase NEGATIVE Marcela/uL Urine Opiates Screen NEGATIVE (NEGATIVE) Urine Barbiturates Screen NEGATIVE (NEGATIVE) Urine Phencyclidine Screen NEGATIVE (NEGATIVE) Urine Amphetamines Screen NEGATIVE (NEGATIVE) Urine Benzodiazepines Screen NEGATIVE (NEGATIVE) Urine Cocaine Screen NEGATIVE (NEGATIVE) Urine Marijuana (THC) Screen NEGATIVE (NEGATIVE) ED Course ED Course Orders Procedure Category Date Status Time Cbc With Differential LAB 12/17/24 Complete 01:38 Comprehensive LAB 12/17/24 Complete Metabolic Panel 01:38 Keppra LAB 12/17/24 In Process (Levetiracetam) Level 01:40 Urinalysis Profile LAB 12/17/24 Complete 01:59 Drug Screen Urine LAB 12/17/24 Complete 01:59 0.9%Nacl 1000ml (Ns PHA 12/17/24 Complete 1000ml) 02:30 Current Medications Medications (Trade) Dose Ordered Sig/Rebekah Route PRN Reason Start Time Stop Time Status Last Admin Dose Admin Sodium Chloride 1,000 ml @ 0 mls/hr ONCE ONCE IV 12/17/24 02:30 12/17/24 02:37 DC 12/17/24 02:45 Vital Signs Date Time Temp Pulse Resp B/P (MAP) Pulse Ox O2 Delivery O2 Flow Rate FiO2 12/17/24 01:32 98.1 76 24 99/52 99 Room Air* 0 21 12/17/24 01:07 98.1 84 16 115/68 96 Room Air 0 We will perform diagnostic labs, and administer medications according to the patient's complaint. Once the results are available, will review and personally interpreted the labs to rule out any acute life-threatening emergency the trach require immediate intervention and treatment. I will then re-evaluate the kayla ent after treatment and diagnostic exams have return to determine whether the patient requires any further testing, can safely be discharged home or need further admission to hospital for additional treatment and evaluation. Labs reviewed CBC shows a white count of 4. Hemoglobin 12.4 hematocrit platelets 173 CMP is within normal limits Patient indicated that he lives by himself so I recommended overnight observation at least making sure that does not have any recurrent seizures. 3:48 a.m. the daughter came and indicated that they will be there to watch him and she was questioning why he needs to be admitted and I explained to her the rationale Would want to be discharged to home. I explained to her the possibilities of why he might have had a breakthrough seizure and he was also hydrated. Keppra levels are still pending at this time. We will discharge him to for him to follow up with his neurologist and primary care. The daughter indicated that 1 of the family members will be there to monitor him and support him Medical Decision Making MDM MDM: Differential diagnosis: Seizure-possibilities are inadequate antiepileptic levels, dehydration, low-grade infection, lack of sleep Rationale: Tests considered and ordered secondary to shared decision making include: labs, ECG and radiology Previous outside records reviewed: Old ER visits. Risk of complication and/or morbidity or mortality of patient management: None Medications-Per medication reconciliation Need for hospitalization: Patient does meet criteria for hospitalization. Need for emergency major/minor surgery: No There are no social concerns with this patient. Prescription drug management Prescriptions will include symptomatic care Patient's prior external medical records from other ER visits were reviewed by me as indicated. Prior testing and results from previous visits were reviewed. Prior tests were taken into account with medical decision making and resource utilization, independent historian/historians were used to obtain complete medical history. I independently interpreted the test that were performed, results were reviewed by me and considered findings on radiology if ordered. Medical management and examination interpretation discussions were had by me with other qualified healthcare professionals as indicated for the patient's care. Problem List Problem List: (1) Seizure (2) History of seizures (3) Post-ictal state (4) Hypotension DX & DISP Disposition: Discharge Decision to Admit Time: 02:33 Departure Impression: Primary Impression: Seizure Additional Impressions: History of seizures, Hypotension, Post-ictal state Condition: Stable Additional Instructions: Patient was informed of all the diagnostic labs and procedures conducted in the emergency room today and demonstrated understanding of the results. I personally reviewed and interpreted all the diagnostic exams performed in the ER today. The patient will be admitted to the hospital for further treatment and evaluation. Disposition-admit to facility Condition-stable/guarded Course-uncertain at this time Pain status-decreased Assessment-exam unchanged Admission Certification- I certify that the patients status is appropriate and is based on my best clinical judgment and the patient's condition as documented in the medical records Referrals: KIMMY GAVIN DO (PCP) KATINA WALLER MD Dec 17, 2024 02:15
[2024-12-17] MEDS: 0.9%NACL 1000ML 1,000 ML IV ONE (02:45)
[2024-12-17 03:03] LABS: APPEARANCE,URINE CLEAR (CLEAR); BILIRUBIN,URINE NEGATIVE (NEGATIVE); COLOR,URINE COLORLESS (YELLOW); GLUCOSE, URINE (UA) NEGATIVE (NEGATIVE); KETONES,URINE NEGATIVE (NEGATIVE); LEUKOCYTE ESTERASE ,URINE NEGATIVE Leu/uL (NEGATIVE); NITRATE,URINE NEGATIVE (NEGATIVE); OCCULT BLOOD,URINE NEGATIVE (NEGATIVE); PH,URINE 7.5 (5.0-8.0); PROTEIN,URINE NEGATIVE (NEGATIVE); UROBILINOGEN,URINE 0.2 mg/dL (0.2-1.0)
[2024-12-17 03:06] LABS: ADD UA MICROSCOPIC NO
[2024-12-17 03:13] LABS: AMPHET/METH SCREEN,URINE NEGATIVE (NEGATIVE); BARBITURATE SCREEN, URINE NEGATIVE (NEGATIVE); BENZODIAZEPINES SCREEN,URINE NEGATIVE (NEGATIVE); CANNABINOID SCREEN,URINE NEGATIVE (NEGATIVE); COCAINE SCREEN,URINE NEGATIVE (NEGATIVE); OPIATE SCREEN,URINE NEGATIVE (NEGATIVE); PHENCYCLIDINE SCREEN,URINE NEGATIVE (NEGATIVE)
[2024-12-17] MEDS: LORazepam 2 MG/ML 1 ML VIAL IVP ONE (04:03)
[2024-12-17 04:31] VITALS: BP 116/73; PULSE 72; RESP 18; TEMP 98; O2SAT 98
== END 2024-12-17 04:38 | disposition home or self-care (01) ==
LOC: EDH 01:05
DX: G40.909 Epilepsy, unspecified, not intractable, without status epilepticus (principal); Z79.899 Other long term (current) drug therapy
CPT/HCPCS: 99284; 96374; 96361; 80053; 80305; 85025; 36415; 80177; 81003; J7030; J2060

== ENCOUNTER 2025-01-02 14:50 | Emergency (ER) | payer MEDICARE ==
[~2025-01-02] VITALS: Ht 167.6 cm; Wt 73.0 kg
--- NOTE | 2025-01-02 15:14 | EKG ---
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
--- NOTE | 2025-01-02 15:35 | HMCIMG ---
CT HEAD/BRAIN W/O CONTRAST HISTORY: Syncope COMPARISON: None TECHNIQUE: Multiple sequential axial images of the head were obtained from the base of the skull through vertex. Patient was not given contrast through intravenous route. FINDINGS: The ventricles and extraventricular CSF spaces are dilated consistent with cerebral atrophy. Nonspecific white matter changes seen. There are bilateral basal ganglia calcifications. There is no midline shift, mass effect or herniation. No acute intracranial bleed is seen. Visualized portion of the paranasal sinuses are grossly within normal limits. IMPRESSION: 1. No acute intracranial bleed is seen. CT was performed with one or more following dose reduction techniques: automated exposure control, adjustment of the mA and kv according to patient's size, or use of a iterative reconstruction technique.
[2025-01-02 15:37] LABS: BASOPHILS # (AUTO) 0.04 K/uL (0.00-0.20); BASOPHILS % (AUTO) 0.8 % (0.0-5.0); EOSINOPHILS # (AUTO) 0.15 K/uL (0.00-0.70); EOSINOPHILS % (AUTO) 3.2 % (0.0-8.0); HEMATOCRIT 39.9 % (42-54); IMMATURE GRANULOCYTE ABSOLUTE 0.01 K/uL (0-1); LYMPHOCYTES # (AUTO) 1.9 K/uL (1.0-4.8); MEAN CORPUSCULAR HEMOGLOBIN 33.4 pg (27.0-33.0); MEAN CORPUSCULAR HGB CONC 34.6 g/dL (32.0-36.0); MEAN CORPUSCULAR VOLUME 96.6 fL (79-99); MONOCYTES # (AUTO) 0.5 K/uL (0.1-1.0); MONOCYTES % (AUTO) 11.4 % (3.0-13.0); NEUTROPHILS # (AUTO) 2.1 K/uL (1.8-7.7); NEUTROPHILS % (AUTO) 44.4 % (40.0-77.0); PLATELET COUNT (AUTO) 143 K/uL (130-400); RED BLOOD CELL COUNT(AUTO) 4.13 MIL/uL (4.50-6.20); RED CELL DISTRIBUTION WIDTH 12.1 % (11.0-15.5); WHITE BLOOD COUNT (AUTO) 4.7 K/uL (4.8-10.8)
[2025-01-02 15:45] LABS: CREATININE 0.8 mg/dL (0.5-1.3); POTASSIUM 3.7 mmol/L (3.5-5.1)
--- NOTE | 2025-01-02 15:54 | ERN ---
ED Note History of Present Illness Stated Complaint: HEADACHE Chief Complaint: Mechanical Fall Time Seen by MD: 14:53 Time Seen by Midlevel: 14:53 Dictation: 54-year-old male presents to the ED for evaluation fall off his bed last night. Patient reports he has a history of seizures and unknown if he had a seizure. Patient reports he hit the back of his head and left side of ribs having some pain. Patient reports he takes Keppra, lacosamide, and carbamazepine for seizures but has not followed up with the PCP recently. Patient requesting prescription and clonazepam here in the ER. Allergies: Coded Allergies: phenobarbital (Unverified Allergy, Unknown, 03/05/19) Home Meds Active Scripts Sulfamethoxazole/Trimethoprim (Bactrim Ds Tablet) 800 Mg-160 Mg Tablet, 1 TAB PO BID for 7 Days, #14 TAB 0 Refills Prov:HAILE GARCIA 07/15/24 Levetiracetam (Keppra) 500 Mg Tablet, 500 MG PO BID for 30 Days, #60 TAB 0 Refills Prov:DAVID BOWMAN MD 03/05/24 Topiramate (Topiramate) 100 Mg Tablet, 100 MG PO BID for 30 Days, #60 TAB Prov:MARY SRIVASTAVA NP 01/31/23 Reported Medications Levetiracetam (Levetiracetam) 1,000 Mg Tablet, 2000 MG PO BID, TAB 01/31/23 Omeprazole (Omeprazole) 40 Mg Capsule.dr, 40 MG PO DAILY, CAP 01/30/23 Loratadine (Loratadine) 10 Mg Tablet, 10 MG PO DAILY for allergy, TAB 01/30/23 Hydrochlorothiazide (Hydrochlorothiazide) 12.5 Mg Tablet, 12.5 MG PO DAILY, TAB 12/28/22 Tamsulosin HCl (Flomax) 0.4 Mg Cap.er.24h, 0.4 MG PO DAILY, CAPSULE. 12/28/22 Lacosamide (Lacosamide) 200 Mg Tablet, 200 MG PO BID, TAB 12/28/22 Metoprolol Tartrate (Metoprolol Tartrate) 25 Mg Tablet, 12.5 MG PO BID, TAB 12/28/22 Clonazepam (Clonazepam) 1 Mg Tablet, 1 MG PO BID PRN for AGITATION, TAB 12/18/22 Past Medical History Past Medical History: Seizure Additional Past Medical Hx: EPILEPSY Surgical History: Other Surgical History Other: VAGAL STIMULATOR Social History: Negative, Lives with family RN Note Reviewed/Agreed w/PFSH: Yes Review of System Dictation Constitutional: Negative for fever,chills, and weight loss Eyes: Negative for injury, pain,redness, and discharge ENT: Negative for injury,pain or swelling Cardiovascular: Negative for chest pain, palpitations, and edema Respiratory: Negative for shortness of breath, cough, and wheezing, Abdomen/GI: Negative for abdominal pain, nausea, vomiting, diarrhea, and constipation Back: Negative for injury and pain : Negative for injury, bleeding and discharge MS/Extremity: Negative for injury and deformity Skin: Negative for rash, and discoloration Neuro: Negative for headache, weakness, numbness, tingling, and seizure Psych: Negative for suicide ideation, homicidal ideation, and hallucinations Review of Systems: was completed Initial Vital Sign VS Vital Signs Date Time Temp Pulse Resp B/P (MAP) Pulse Ox O2 Delivery O2 Flow Rate FiO2 01/02/25 14:52 98.2 80 16 144/62 98 Room Air 0 01/02/25 15:15 21 Physical Exam Dictation General: awake, alert, NAD Head/Face: Normocephalic, atraumatic Eyes: PERRL, EOMI, vision at baseline ENT: oral cavity clear, TMs clear, no signs of infection Neck: Trachea midline, supple, no nuchal rigidity Cardiovascular: RRR, normal S1/S2, No MRGs, no JVD Respiratory: CTAB, no respiratory distress, No rales or wheezes Abdomen: Soft, non-tender, non-distended, normal bowel sounds, no guarding or rebound. Skin: Warm, dry, normal turgor, no rash MS/Extremity: Pulses equal, no cyanosis, neurovascular intact, FROM Neuro: COAx4, GCS 15, strength 5/5, CN 2-12 intact, normal cerebellar exam, normal gait, Psych: Normal behavior, mood, and affect normal Results (Laboratory/Radiology) Laboratory/Radiology Laboratory Tests Test 01/02/25 15:24 01/02/25 18:27 White Blood Count 4.7 K/uL (4.8-10.8) L Red Blood Count 4.13 MIL/uL (4.50-6.20) L Hemoglobin 13.8 g/dL (14.0-18.0) L Hematocrit 39.9 % (42-54) L Mean Corpuscular Volume 96.6 fL (79-99) Mean Corpuscular Hemoglobin 33.4 pg (27.0-33.0) H Mean Corpuscular Hemoglobin Concent 34.6 g/dL (32.0-36.0) Red Cell Distribution Width 12.1 % (11.0-15.5) Platelet Count 143 K/uL (130-400) Mean Platelet Volume 10.2 fL (7.5-10.5) Immature Granulocyte % (Auto) 0.2 % (0-1) Neutrophils (%) (Auto) 44.4 % (40.0-77.0) Lymphocytes (%) (Auto) 40.0 % (21.0-51.0) Monocytes (%) (Auto) 11.4 % (3.0-13.0) Eosinophils (%) (Auto) 3.2 % (0.0-8.0) Basophils (%) (Auto) 0.8 % (0.0-5.0) Neutrophils # (Auto) 2.1 K/uL (1.8-7.7) Lymphocytes # (Auto) 1.9 K/uL (1.0-4.8) Monocytes # (Auto) 0.5 K/uL (0.1-1.0) Eosinophils # (Auto) 0.15 K/uL (0.00-0.70) Basophils # (Auto) 0.04 K/uL (0.00-0.20) Absolute Immature Granulocyte (auto 0.01 K/uL (0-1) Nucleated Red Blood Cells 0.0 % (0.0-0.19) Sodium Level 137 mmol/L (136-145) Potassium Level 3.7 mmol/L (3.5-5.1) Chloride Level 101 mmol/L (101-111) Carbon Dioxide Level 23 mmol/L (21-32) Blood Urea Nitrogen 13 mg/dL (7-18) Creatinine 0.8 mg/dL (0.5-1.3) Glomerular Filtration Rate Calc 104 mL/min (>90) Random Glucose 95 mg/dL (70-105) Lactic Acid Level 0.8 mmol/L (0.8-2.5) Total Calcium 9.0 mg/dL (8.5-10.1) Troponin I High Sensitivity 4 ng/L (4-75) Urine Color YELLOW (YELLOW) Urine Appearance CLEAR (CLEAR) Urine pH 5.5 (5.0-8.0) Urine Specific [place] 1.034 (1.001-1.031) Urine Protein 30 mg/dL (NEGATIVE) H Urine Glucose (UA) NEGATIVE mg/dL (NEGATIVE) Urine Ketones 5 mg/dL (NEGATIVE) H Urine Occult Blood NEGATIVE (NEGATIVE) Urine Nitrate NEGATIVE (NEGATIVE) Urine Bilirubin NEGATIVE mg/dL (NEGATIVE) Urine Urobilinogen 0.2 mg/dL (0.2-1.0) Urine Leukocyte Esterase NEGATIVE Marcela/uL Urine RBC 0-1 /HPF (0-1) Urine WBC 2-5 /HPF (0-1) H Urine Squamous Epithelial Cells RARE /HPF (0-2) Urine Bacteria None /HPF (None Seen) Urine Opiates Screen NEGATIVE (NEGATIVE) Urine Barbiturates Screen NEGATIVE (NEGATIVE) Urine Phencyclidine Screen NEGATIVE (NEGATIVE) Urine Amphetamines Screen NEGATIVE (NEGATIVE) Urine Benzodiazepines Screen NEGATIVE (NEGATIVE) Urine Cocaine Screen NEGATIVE (NEGATIVE) Urine Marijuana (THC) Screen NEGATIVE (NEGATIVE) Labs Reviewed?: Yes EKG: (+) NSR EKG Comment: Date: 01/02/2025 Time: 15 12 Ventricular rate: 67 KS interval: 197 QRS duration: 99 QT/QTc: 396 EKG interpretation: Normal sinus rhythm, no dysrhythmia, no STEMI. Reviewed by ED Attending X-RAY Comment: REASON: fall ORDERING PHYSICIAN: FELIPE WITT PROCEDURE: RIB LT W C - RIBS UNI LT W PA CHEST 3+VWS RIBS UNI LT W PA CHEST 3+VWS REASON: fall. COMPARISON: None TECHNIQUE: Frontal projection of the chest was obtained. 5 images of the left wrist were obtained. FINDINGS: No acute pulmonary infiltrates is seen. Heart is not enlarged. Degenerative changes are seen. Findings suggestive of nondisplaced fracture are seen involving the left eighth rib. IMPRESSION: Findings as described above. CT Scan Comment: REASON: fall ORDERING PHYSICIAN: FELIPE WITT PROCEDURE: HEAD WO - CT HEAD/BRAIN W/O CONTRAST CT HEAD/BRAIN W/O CONTRAST HISTORY: Syncope COMPARISON: None TECHNIQUE: Multiple sequential axial images of the head were obtained from the base of the skull through vertex. Patient was not given contrast through intravenous route. FINDINGS: The ventricles and extraventricular CSF spaces are dilated consistent with cerebral atrophy. Nonspecific white matter changes seen. There are bilateral basal ganglia calcifications. There is no midline shift, mass effect or herniation. No acute intracranial bleed is seen. Visualized portion of the paranasal sinuses are grossly within normal limits. IMPRESSION: 1. No acute intracranial bleed is seen. ED Course ED Course Orders Procedure Category Date Status Time Cbc With Differential LAB 01/02/25 Complete 15:04 Ct Head/Brain W/O CT 01/02/25 Resulted Contrast 15:04 Basic Metabolic Panel LAB 01/02/25 Complete 15:04 Troponin I High LAB 01/02/25 Complete Sensitivity 15:04 12 Lead Ekg Tracing- EKG 01/02/25 Complete Technical 15:04 Urinalysis LAB 01/02/25 Complete W/Microscopic 15:04 Drug Screen Urine LAB 01/02/25 Complete 15:04 Keppra LAB 01/02/25 In Process (Levetiracetam) Level 15:04 Lactic Acid LAB 01/02/25 Complete 15:04 Ribs Uni Lt W Pa RAD 01/02/25 Resulted Chest 3+Vws 15:50 Acetaminophen 500mg PHA 01/02/25 Complete Tab (Tylenol 500mg T 15:54 Lidocaine (Lidoderm PHA 01/02/25 In Process Patch 5%) 17:20 Current Medications Medications (Trade) Dose Ordered Sig/Rebekah Route PRN Reason Start Time Stop Time Status Last Admin Dose Admin Acetaminophen (TYLenol 500MG TAB) 1,000 mg ONCE STAT PO 01/02/25 15:54 01/02/25 15:55 DC 01/02/25 16:43 Lidocaine (Lidoderm Patch 5%) 1 patch ONCE TP 01/02/25 17:20 01/02/25 21:30 01/02/25 19:00 Vital Signs Date Time Temp Pulse Resp B/P (MAP) Pulse Ox O2 Delivery O2 Flow Rate FiO2 01/02/25 17:38 98.6 71 16 108/73 100 Room Air* 0 21 01/02/25 15:15 98.2 80 16 144/62 98 Room Air* 0 21 01/02/25 14:52 98.2 80 16 144/62 98 Room Air 0 Medical Decision Making MDM MDM: Differential diagnosis: Fall, seizures, noncompliant with medication, drug use, rib fracture, pneumothorax, rib contusion Need for hospitalization: Patient does meet criteria for hospitalization. Need for emergency major/minor surgery: No I independently interpreted the test that were performed, results were reviewed by me and considered findings on radiology if ordered. Medical management and examination interpretation discussions were had by me with other qualified healthcare professionals as indicated for the patient's care. 54-year-old male presents to the ED for evaluation fall off his bed last night. Patient reports he has a history of seizures and unknown if he had a seizure. Patient reports he hit the back of his head and left side of ribs having some pain. Patient reports he takes Keppra, lacosamide, and carbamazepine for seizures but has not followed up with the PCP recently. Patient requesting prescription and clonazepam here in the ER. Patient was neurologically intact. Alert and oriented x4. GCS 15. No visualized hematoma, head atraumatic. No visualized nystagmus. Patient requesting clonazepam however when I went through his bag of medications I did not see bottle for prescription for that medication however, there were other empty bottle of medications. No leukocytosis. No electrolyte abnormalities. Negative troponin. Lactic acid within normal limits not correlating with recent seizure. UA without signs of UTI. Negative UDS. CT scan of the head was ordered due to fall and complaining of headache. CT scan of the head showed no acute intracranial bleeding or any other acute finding. Since patient was complaining of left-sided rib pain as well I did order x-ray. X-ray did show findings suggestive of a nondisplaced fracture seen at the left 8th rib. Patient does not have any overlying bruising, erythema. When I have gone in to evaluate and recheck on patient he is lying comfortably asleep in bed does not appear in any acute distress. Patient will be discharged home with incentive spirometry and recommended to follow up with PCP. Patient highly recommended to follow up with neurologist for medications if he states that he was out however it appears to be fall with Keppra, carbamazepine, l acosamide. Return precautions discussed with patient. Patient verbalized understanding, agreed with the plan, and all questions were answered at this time. DX & DISP Disposition: Discharge Departure Impression: Primary Impression: Left rib fracture Additional Impressions: Fall, Headache Condition: Stable Scripts Lidocaine (Lidocaine) 4 % Adh..patch 1 PATCH TP DAILY for 10 Days, #10 PATCH 0 Refills Prov: WITT,FELIPE I PA 01/02/25 Acetaminophen (Acetaminophen) 500 Mg Tablet 1 TAB PO Q6HPRN PRN for pain or fever for 15 Days, #60 TAB 0 Refills Prov: FELIPE WITT 01/02/25 Additional Instructions: DISCHARGE HOME. REST. FOLLOW UP WITH PRIMARY CARE DREl IN 24 HOURS. RETURN TO THE ER FOR ANY ACUTE CHANGE. PATIENT WAS ALSO ADVISED TO FOLLOW-UP WITH PRIMARY CARE PHYSICIAN IN 1 TO 2 DAYS FOR CONTINUED MONITORING. ALL INSTRUCTIONS WERE GIVEN TO LAYMANS TERM AND PATIENT AGREEABLE TO DISCHARGE AND PROPER FOLLOW-UP. Referrals: KIMMY GAVIN DO (PCP) I have reviewed the case, and I agree with, Diagnosis and Plan FELIPE WITT Jan 02, 2025 15:54
--- NOTE | 2025-01-02 16:40 | HMCIMG ---
RIBS UNI LT W PA CHEST 3+VWS REASON: fall. COMPARISON: None TECHNIQUE: Frontal projection of the chest was obtained. 5 images of the left wrist were obtained. FINDINGS: No acute pulmonary infiltrates is seen. Heart is not enlarged. Degenerative changes are seen. Findings suggestive of nondisplaced fracture are seen involving the left eighth rib. IMPRESSION: Findings as described above.
[2025-01-02] MEDS: acetaMINOPHEN 500 MG TABLET PO STA (16:43)
[2025-01-02 18:41] LABS: APPEARANCE,URINE CLEAR (CLEAR); BILIRUBIN,URINE NEGATIVE (NEGATIVE); COLOR,URINE YELLOW (YELLOW); GLUCOSE, URINE (UA) NEGATIVE (NEGATIVE); KETONES,URINE 5 mg/dL (NEGATIVE); LEUKOCYTE ESTERASE ,URINE NEGATIVE Leu/uL (NEGATIVE); NITRATE,URINE NEGATIVE (NEGATIVE); OCCULT BLOOD,URINE NEGATIVE (NEGATIVE); PH,URINE 5.5 (5.0-8.0); PROTEIN,URINE 30 mg/dL (NEGATIVE); UROBILINOGEN,URINE 0.2 mg/dL (0.2-1.0)
[2025-01-02 18:54] LABS: MUCUS,URINE RARE LPF (None Seen); RBC,URINE 0-1 /HPF (0-1); SQUAMOUS EPITHELIAL CELL,UR RARE /HPF (0-2)
[2025-01-02] MEDS: LIDOCAINE 5% TOPICAL PATCH TP SCH (19:00)
[2025-01-02 19:03] LABS: AMPHET/METH SCREEN,URINE NEGATIVE (NEGATIVE); BARBITURATE SCREEN, URINE NEGATIVE (NEGATIVE); BENZODIAZEPINES SCREEN,URINE NEGATIVE (NEGATIVE); CANNABINOID SCREEN,URINE NEGATIVE (NEGATIVE); COCAINE SCREEN,URINE NEGATIVE (NEGATIVE); OPIATE SCREEN,URINE NEGATIVE (NEGATIVE); PHENCYCLIDINE SCREEN,URINE NEGATIVE (NEGATIVE)
[2025-01-02] MEDS ORDERED: ACET-66 PO (19:21)
[2025-01-02] MEDS ORDERED: LIDO1ADH82 TP (19:21)
[2025-01-02 20:03] VITALS: BP 112/72; PULSE 70; RESP 18; TEMP 98.5; O2SAT 97
== END 2025-01-02 20:06 | disposition home or self-care (01) ==
LOC: EDH 14:50
DX: S22.32XA Fracture of one rib, left side, initial encounter for closed fracture (principal); R51.9 Headache, unspecified; G40.909 Epilepsy, unspecified, not intractable, without status epilepticus; Z79.899 Other long term (current) drug therapy; Z98.890 Other specified postprocedural states; W06.XXXA Fall from bed, initial encounter; Y93.89 Activity, other specified; Y92.89 Other specified places as the place of occurrence of the external cause; Y99.8 Other external cause status
CPT/HCPCS: 36415; 70450; 71101; 80048; 80177; 80305; 81001; 83605; 84484; 85025; 93005; 99285

== ENCOUNTER 2025-01-04 04:35 | Emergency (ER) | payer MEDICARE ==
[~2025-01-04] VITALS: Ht 167.6 cm; Wt 72.6 kg
[~2025-01-04 04:35] MED LIST changes: +ACET-66 PO; +LEVE100023 PO; -LEVE10006 PO; +LIDO1ADH82 TP; -TAMS-1 PO; +TAMS-55 PO; +TOPI-258 PO; -TOPI100T37 PO
--- NOTE | 2025-01-04 04:46 | ERN ---
General Chief Complaint: Seizure Stated Complaint: SEIZURE Time Seen by MD: 04:45 History of Present Illness Initial Comments Reports seizure that persisted for an hour. Patient states that he takes clonazepam carbamazepine him levetiracetam and lacosamide for his seizures and that he has run out of clonazepam for the last week or so. Timing/Duration: 1-3 hours Associated Symptoms: denies symptoms Allergies: Coded Allergies: phenobarbital (Unverified Allergy, Unknown, 03/05/19) Home Meds Active Scripts Lidocaine (Lidocaine) 4 % Adh..patch, 1 PATCH TP DAILY for 10 Days, #10 PATCH 0 Refills Prov:FELIPE WITT 01/02/25 Acetaminophen (Acetaminophen) 500 Mg Tablet, 1 TAB PO Q6HPRN PRN for pain or fever for 15 Days, #60 TAB 0 Refills Prov:FELIPE WITT 01/02/25 Sulfamethoxazole/Trimethoprim (Bactrim Ds Tablet) 800 Mg-160 Mg Tablet, 1 TAB PO BID for 7 Days, #14 TAB 0 Refills Prov:HAILE GARCIA 07/15/24 Levetiracetam (Keppra) 500 Mg Tablet, 500 MG PO BID for 30 Days, #60 TAB 0 Refills Prov:DAVID BOWMAN MD 03/05/24 Topiramate (Topiramate) 100 Mg Tablet, 100 MG PO BID for 30 Days, #60 TAB Prov:MARY SRIVASTAVA NP 01/31/23 Reported Medications Levetiracetam (Levetiracetam) 1,000 Mg Tablet, 2000 MG PO BID, TAB 01/31/23 Omeprazole (Omeprazole) 40 Mg Capsule.dr, 40 MG PO DAILY, CAP 01/30/23 Loratadine (Loratadine) 10 Mg Tablet, 10 MG PO DAILY for allergy, TAB 01/30/23 Hydrochlorothiazide (Hydrochlorothiazide) 12.5 Mg Tablet, 12.5 MG PO DAILY, TAB 12/28/22 Tamsulosin HCl (Flomax) 0.4 Mg Cap.er.24h, 0.4 MG PO DAILY, CAPSULE. 12/28/22 Lacosamide (Lacosamide) 200 Mg Tablet, 200 MG PO BID, TAB 12/28/22 Metoprolol Tartrate (Metoprolol Tartrate) 25 Mg Tablet, 12.5 MG PO BID, TAB 12/28/22 Clonazepam (Clonazepam) 1 Mg Tablet, 1 MG PO BID PRN for AGITATION, TAB 12/18/22 Past Medical History Past Medical History: Seizure Medical History Other: EPILEPSY Past Surgical History: Other Surgical History Other: VAGAL STIMULATOR Social History Social History: Negative, Lives with family Constitutional: (-) chills, (-) diaphoresis, (-) fever, (-) malaise, (-) weakness, (-) other documentation EENTM: (-) eye pain, (-) blurred vision, (-) tearing, (-) double vision, (-) ear pain, (-) ear discharge, (-) nose pain, (-) nose congestion, (-) throat pain, (-) Throat swelling, (-) mouth pain, (-) tooth pain, (-) mouth swelling, (-) other documentation Respiratory: (-) cough, (-) orthopnea, (-) short of breath, (-) stridor, (-) wheezing, (-) other documentation Cardiovascular: (-) chest pain, (-) edema, (-) palpitations, (-) syncope, (-) dyspnea on exertion, (-) other documentation Gastrointestinal/Abdominal: (-) nausea, (-) vomiting, (-) diarrhea, (-) abdominal pain, (-) abdominal distention, (-) constipation, (-) rectal bleeding, (-) dark stool/melena, (-) other documentation Musculoskeletal: (-) Neck pain, (-) back pain, (-) Flank Pain, (-) joint pain, (-) joint swelling, (-) muscle pain, (-) muscle stiffness, (-) gout, (-) other documentation Skin: (-) laceration, (-) contusion, (-) abrasion, (-) abscess, (-) rash, (-) change in color, (-) change in hair, (-) change in nails, (-) diaphoresis, (-) dryness, (-) other documentation Neuro: (+) headache Physical Exam General Appearance: (+) no apparent distress Orientation: (+) alert Eye: bilateral eye normal inspection, bilateral eye PERRL, bilateral eye EOMI Ear, Nose, Throat: (+) hearing grossly normal, (+) normal ENT inspection Neck: (+) normal inspection, (+) supple, (+) full range of motion, (+) no JVD Respiratory: (+) chest non-tender, (+) lungs clear, (+) well ventilated Heart: (+) regular, (+) no gallop Vascular: (+) no edema, (+) normal peripheral pulse Gastrointestinal: (+) soft, (+) non-tender, (+) bowel sound present Results Laboratory and Microbiology Lab and Micro Result Laboratory Tests Test 01/04/25 05:12 White Blood Count 4.3 K/uL (4.8-10.8) L Red Blood Count 3.85 MIL/uL (4.50-6.20) L Hemoglobin 12.9 g/dL (14.0-18.0) L Hematocrit 37.5 % (42-54) L Mean Corpuscular Volume 97.4 fL (79-99) Mean Corpuscular Hemoglobin 33.5 pg (27.0-33.0) H Mean Corpuscular Hemoglobin Concent 34.4 g/dL (32.0-36.0) Red Cell Distribution Width 12.1 % (11.0-15.5) Platelet Count 150 K/uL (130-400) Mean Platelet Volume 10.6 fL (7.5-10.5) H Immature Granulocyte % (Auto) 0.5 % (0-1) Neutrophils (%) (Auto) 56.3 % (40.0-77.0) Lymphocytes (%) (Auto) 30.3 % (21.0-51.0) Monocytes (%) (Auto) 10.3 % (3.0-13.0) Eosinophils (%) (Auto) 2.1 % (0.0-8.0) Basophils (%) (Auto) 0.5 % (0.0-5.0) Neutrophils # (Auto) 2.4 K/uL (1.8-7.7) Lymphocytes # (Auto) 1.3 K/uL (1.0-4.8) Monocytes # (Auto) 0.4 K/uL (0.1-1.0) Eosinophils # (Auto) 0.09 K/uL (0.00-0.70) Basophils # (Auto) 0.02 K/uL (0.00-0.20) Absolute Immature Granulocyte (auto 0.02 K/uL (0-1) Nucleated Red Blood Cells 0.0 % (0.0-0.19) Sodium Level 141 mmol/L (136-145) Potassium Level 2.9 mmol/L (3.5-5.1) *L Chloride Level 112 mmol/L (101-111) H Carbon Dioxide Level 19 mmol/L (21-32) L Blood Urea Nitrogen 11 mg/dL (7-18) Creatinine 0.6 mg/dL (0.5-1.3) Glomerular Filtration Rate Calc 113 mL/min (>90) Random Glucose 99 mg/dL (70-105) Total Calcium 6.9 mg/dL (8.5-10.1) L Total Bilirubin 0.2 mg/dL (0.2-1.0) Aspartate Amino Transf (AST/SGOT) 10 U/L (10-37) Alanine Aminotransferase (ALT/SGPT) 12 U/L (12-78) Alkaline Phosphatase 94 U/L (50-136) Total Protein 5.1 g/dL (6.0-8.3) L Albumin 2.8 g/dL (3.5-5.0) L MDM Patient states that on prior occasions when he has been in seen in the emergency room with seizures he is loaded up with Ativan or Keppra and then discharged. I will load give him a g of Keppra. And some fluids and check his serum levels of his various anticonvulsants. Very chemistry panel results show a hypokalemia we will giving the patient 40 mEq of oral potassium. I bolused him a L of LR. I also give him dose of Flexeril and ketorolac for neck pain and headache. The patient is serum levels of his various antiseizure medications will take a long time to be processed by the lab, I would not be surprised if some are send outs. Patient feels better I will send him home and he can fill his clonazepam in the morning. He can have his doctor call the hospital here to get the serum levels of his antiseizure meds. ED Course Orders Procedure Category Date Status Time Levetiracetam 500 PHA 01/04/25 Complete Mg/5 Ml Sd V (Keppra 5 04:59 Clonazepam (Klonopin) LAB 01/04/25 In Process Level 04:59 Free Carbamazepine LAB 01/04/25 In Process 04:59 Lacosamide (Vimpat) LAB 01/04/25 In Process Level 04:59 Levetiracetam 500 PHA 01/04/25 Complete Mg/5 Ml Sd V (Keppra 5 05:30 Cbc With Differential LAB 01/04/25 Complete 05:15 Comprehensive LAB 01/04/25 Complete Metabolic Panel 05:15 Potassium Chl 10% PHA 01/04/25 Complete Elixir 20meq (Kcl 10% 06:00 Cyclobenzaprine Hcl PHA 01/04/25 Complete (Cyclobenzaprine Hcl 06:00 Ketorolac PHA 01/04/25 Complete Tromethamine 15mg/Ml 06:00 Lactated Ringers PHA 01/04/25 In Process 1000ml (Lactated 06:30 Current Medications Medications (Trade) Dose Ordered Sig/Rebekah Route PRN Reason Start Time Stop Time Status Last Admin Dose Admin Cyclobenzaprine HCl (Cyclobenzaprine HCl) 10 mg ONCE ONCE PO 01/04/25 06:00 01/04/25 06:01 DC 01/04/25 06:33 Ketorolac Tromethamine (toRADol) 15 mg ONCE ONCE IV 01/04/25 06:00 01/04/25 06:01 DC 01/04/25 06:34 Lactated Ringer's 1,000 ml @ 150 mls/hr Q6H40M IV 01/04/25 06:30 02/03/25 06:29 01/04/25 06:34 Levetiracetam (kepPRA 500 MG/5 ML SD VIAL) 1,000 mg ONCE STAT IV 01/04/25 04:59 01/04/25 05:07 DC Levetiracetam 1000 mg/Sodium Chloride 100 ml @ 400 mls/hr ONCE ONCE IV 01/04/25 05:30 01/04/25 05:44 DC 01/04/25 05:47 Potassium Chloride (KCl 10% Elixir 20meq/15ml) 40 meq ONCE ONCE PO 01/04/25 06:00 01/04/25 06:01 DC 01/04/25 06:33 Vital Signs Date Time Temp Pulse Resp B/P (MAP) Pulse Ox O2 Delivery O2 Flow Rate FiO2 01/04/25 06:44 70 18 117/76 100 Room Air* 0 21 01/04/25 05:16 97.5 76 16 121/78 99 Room Air* 0 21 01/04/25 04:36 97.0 75 20 127/91 97 Room Air DX & DISP Disposition: Discharge Departure Impression: Primary Impression: Recurrent seizures Condition: Stable Additional Instructions: Please fill your clonazepam prescription. Please have your doctor call the hospital for the results of the serum levels of your antiseizure meds in a couple days. Referrals: KIMMY GAVIN DO (PCP) YUMIKO PORTER MD Jan 04, 2025 04:46
[2025-01-04] MEDS ORDERED: leveTIRACEtam 500 MG/5 ML SD VIAL IV STA (04:59)
[2025-01-04 05:16] VITALS: TEMP 97.6
[2025-01-04 05:29] LABS: BASOPHILS # (AUTO) 0.02 K/uL (0.00-0.20); BASOPHILS % (AUTO) 0.5 % (0.0-5.0); EOSINOPHILS # (AUTO) 0.09 K/uL (0.00-0.70); EOSINOPHILS % (AUTO) 2.1 % (0.0-8.0); HEMATOCRIT 37.5 % (42-54); IMMATURE GRANULOCYTE ABSOLUTE 0.02 K/uL (0-1); LYMPHOCYTES # (AUTO) 1.3 K/uL (1.0-4.8); LYMPHOCYTES % (AUTO) 30.3 % (21.0-51.0); MEAN CORPUSCULAR HEMOGLOBIN 33.5 pg (27.0-33.0); MEAN CORPUSCULAR HGB CONC 34.4 g/dL (32.0-36.0); MEAN CORPUSCULAR VOLUME 97.4 fL (79-99); MONOCYTES # (AUTO) 0.4 K/uL (0.1-1.0); MONOCYTES % (AUTO) 10.3 % (3.0-13.0); NEUTROPHILS # (AUTO) 2.4 K/uL (1.8-7.7); NEUTROPHILS % (AUTO) 56.3 % (40.0-77.0); PLATELET COUNT (AUTO) 150 K/uL (130-400); RED BLOOD CELL COUNT(AUTO) 3.85 MIL/uL (4.50-6.20); RED CELL DISTRIBUTION WIDTH 12.1 % (11.0-15.5); WHITE BLOOD COUNT (AUTO) 4.3 K/uL (4.8-10.8)
[2025-01-04 05:37] LABS: ALBUMIN 2.8 g/dL (3.5-5.0); CREATININE 0.6 mg/dL (0.5-1.3)
[2025-01-04 05:42] LABS: BILIRUBIN,TOTAL 0.2 mg/dL (0.2-1.0); TOTAL PROTEIN, SERUM 5.1 g/dL (6.0-8.3)
[2025-01-04 05:46] LABS: POTASSIUM 2.9 mmol/L (3.5-5.1)
[2025-01-04] MEDS: leveTIRACEtam 500 MG/5 ML SD V 1,000 MG in 0.9%NACL 100ML 100 ML IV ONE (05:47)
[2025-01-04] MEDS: PoTASSium chl 10% ELIXIR 20MEQ 20 MEQ/15 ML UDCUP PO ONE (06:33)
[2025-01-04] MEDS: CYCLOBENZAPRINE HCL 10 MG TABLET PO ONE (06:33)
[2025-01-04] MEDS: ketOROlac 15MG/ML VIAL (15MG/ML) IV ONE (06:34)
[2025-01-04] MEDS: LACTATED RINGERS 1000ML 1,000 ML IV SCH (06:34)
[2025-01-04 06:44] VITALS: BP 117/76; PULSE 70; RESP 18; O2SAT 100
== END 2025-01-04 08:30 | disposition home or self-care (01) ==
LOC: EDH 04:35
DX: G40.909 Epilepsy, unspecified, not intractable, without status epilepticus (principal); Z79.899 Other long term (current) drug therapy
CPT/HCPCS: 99284; 96365; 96366; 96375; 80053; 85025; 80235; 80157; 36415; J1885; J7120; J1953

== ENCOUNTER 2025-02-25 00:54 | Emergency (ER) | payer MEDICARE, MEDICAID ==
[~2025-02-25] VITALS: Ht 172.7 cm; Wt 72.6 kg
--- NOTE | 2025-02-25 01:02 | NUR ---
PT CARE ASSUMED AT THIS TIME
--- NOTE | 2025-02-25 01:23 | ERN ---
ED Note History of Present Illness Stated Complaint: SEIZURES Chief Complaint: Seizure Time Seen by MD: 01:04 Dictation: Patient is a 54-year-old male with a history of diabetes type 2, hypertension, chronic seizure on Keppra 500 mg b.i.d., carbamazepine 100 mg b.i.d., Lacozamide 200 mg b.i.d.. He was brought to the ER due to an seizure episode at home, per family report his mother was the 1 who so the seizure episode and reports the patient hit his head as well. I evaluate the patient at bedside, he was very drowsy, he also takes muscle relaxant q.6 our at home. Family was not at bedside to give more information. No shortness with the patient received any Ativan on top of his medication at home. Allergies: Coded Allergies: phenobarbital (Unverified Allergy, Unknown, 03/05/19) Home Meds Active Scripts Lidocaine (Lidocaine) 4 % Adh..patch, 1 PATCH TP DAILY for 10 Days, #10 PATCH 0 Refills Prov:FELIPE WITT 01/02/25 Acetaminophen (Acetaminophen) 500 Mg Tablet, 1 TAB PO Q6HPRN PRN for pain or fever for 15 Days, #60 TAB 0 Refills Prov:FELIPE WITT 01/02/25 Sulfamethoxazole/Trimethoprim (Bactrim Ds Tablet) 800 Mg-160 Mg Tablet, 1 TAB PO BID for 7 Days, #14 TAB 0 Refills Prov:HAILE GARCIA 07/15/24 Levetiracetam (Keppra) 500 Mg Tablet, 500 MG PO BID for 30 Days, #60 TAB 0 Refills Prov:DAVID BOWMAN MD 03/05/24 Topiramate (Topiramate) 100 Mg Tablet, 100 MG PO BID for 30 Days, #60 TAB Prov:MARY SRIVASTAVA NP 01/31/23 Reported Medications Levetiracetam (Levetiracetam) 1,000 Mg Tablet, 2000 MG PO BID, TAB 01/31/23 Omeprazole (Omeprazole) 40 Mg Capsule.dr, 40 MG PO DAILY, CAP 01/30/23 Loratadine (Loratadine) 10 Mg Tablet, 10 MG PO DAILY for allergy, TAB 01/30/23 Hydrochlorothiazide (Hydrochlorothiazide) 12.5 Mg Tablet, 12.5 MG PO DAILY, TAB 12/28/22 Tamsulosin HCl (Flomax) 0.4 Mg Cap.er.24h, 0.4 MG PO DAILY, CAPSULE.DR 12/28/22 Lacosamide (Lacosamide) 200 Mg Tablet, 200 MG PO BID, TAB 12/28/22 Metoprolol Tartrate (Metoprolol Tartrate) 25 Mg Tablet, 12.5 MG PO BID, TAB 12/28/22 Clonazepam (Clonazepam) 1 Mg Tablet, 1 MG PO BID PRN for AGITATION, TAB 12/18/22 Past Medical History Past Medical History: Seizure Additional Past Medical Hx: EPILEPSY Surgical History: Other Surgical History Other: VAGAL STIMULATOR Social History: Negative, Lives with family Review of System Dictation NEGATIVE EXCEPT PER HPI Constitutional: Negative for fever,chills, and weight loss Eyes: Negative for injury, pain,redness, and discharge ENT: Negative for injury,pain or swelling Cardiovascular: denies chest pain, palpitations, and edema Respiratory: Negative for shortness of breath, cough, and wheezing, Abdomen/GI: Negative for abdominal pain, nausea, vomiting, diarrhea, and constipation Back: Negative for injury and pain : Negative for injury, bleeding and discharge MS/Extremity: Negative for injury and deformity Skin: Negative for rash, and discoloration Neuro: Reports seizure episode Psych: Negative for suicide ideation, homicidal ideation, and hallucinations Initial Vital Sign VS Vital Signs Date Time Temp Pulse Resp B/P (MAP) Pulse Ox O2 Delivery O2 Flow Rate FiO2 02/25/25 01:02 96.8 79 20 142/96 95 Room Air* 0 21 Physical Exam Dictation General: Drowsy, lethargic Head/Face: Normocephalic, atraumatic Eyes: PERRL, EOMI, vision at baseline ENT: oral cavity clear, TMs clear, no signs of infection Neck: Trachea midline, supple, no nuchal rigidity Cardiovascular: RRR, normal S1/S2, No MRGs, no JVD Respiratory: CTAB, no respiratory distress, No rales or wheezes Abdomen: Soft , no tender Skin: Warm, dry, normal turgor, no rash MS/Extremity: Pulses equal, no cyanosis, neurovascular intact, FROM Neuro: Patient is lethargic Psych: Normal behavior, mood, and affect normal Results (Laboratory/Radiology) Laboratory/Radiology Laboratory Tests Test 02/25/25 01:10 02/25/25 02:29 White Blood Count 3.8 K/uL (4.8-10.8) L Red Blood Count 4.01 MIL/uL (4.50-6.20) L Hemoglobin 13.6 g/dL (14.0-18.0) L Hematocrit 37.2 % (42-54) L Mean Corpuscular Volume 92.8 fL (79-99) Mean Corpuscular Hemoglobin 33.9 pg (27.0-33.0) H Mean Corpuscular Hemoglobin Concent 36.6 g/dL (32.0-36.0) H Red Cell Distribution Width 11.6 % (11.0-15.5) Platelet Count 152 K/uL (130-400) Mean Platelet Volume 10.9 fL (7.5-10.5) H Immature Granulocyte % (Auto) 0.3 % (0-1) Neutrophils (%) (Auto) 45.6 % (40.0-77.0) Lymphocytes (%) (Auto) 39.7 % (21.0-51.0) Monocytes (%) (Auto) 12.0 % (3.0-13.0) Eosinophils (%) (Auto) 1.9 % (0.0-8.0) Basophils (%) (Auto) 0.5 % (0.0-5.0) Neutrophils # (Auto) 1.7 K/uL (1.8-7.7) L Lymphocytes # (Auto) 1.5 K/uL (1.0-4.8) Monocytes # (Auto) 0.5 K/uL (0.1-1.0) Eosinophils # (Auto) 0.07 K/uL (0.00-0.70) Basophils # (Auto) 0.02 K/uL (0.00-0.20) Absolute Immature Granulocyte (auto 0.01 K/uL (0-1) Nucleated Red Blood Cells 0.0 % (0.0-0.19) Platelet Morphology PLT CLUMPS PRESENT Red Blood Cell Morphology ANISO 1+ Sodium Level 131 mmol/L (136-145) L Potassium Level 3.5 mmol/L (3.5-5.1) Chloride Level 98 mmol/L (101-111) L Carbon Dioxide Level 21 mmol/L (21-32) Blood Urea Nitrogen 8 mg/dL (7-18) Creatinine 0.6 mg/dL (0.5-1.3) Glomerular Filtration Rate Calc 113 mL/min (>90) Random Glucose 111 mg/dL (70-105) H Total Calcium 8.3 mg/dL (8.5-10.1) L Total Creatine Kinase 89 U/L (21-232) # Carbamazepine (Tegretol) Level 8.3 mcg/mL (4.0-12.0) Urine Opiates Screen NEGATIVE (NEGATIVE) Urine Barbiturates Screen NEGATIVE (NEGATIVE) Urine Phencyclidine Screen NEGATIVE (NEGATIVE) Urine Amphetamines Screen NEGATIVE (NEGATIVE) Urine Benzodiazepines Screen NEGATIVE (NEGATIVE) Urine Cocaine Screen NEGATIVE (NEGATIVE) Urine Marijuana (THC) Screen NEGATIVE (NEGATIVE) ED Course ED Course Orders Procedure Category Date Status Time Lacosamide (Vimpat) LAB 02/25/25 In Process Level 01:12 Keppra LAB 02/25/25 In Process (Levetiracetam) Level 01:12 Cbc With Differential LAB 02/25/25 Complete 01:12 Basic Metabolic Panel LAB 02/25/25 Complete 01:12 Creatine Kinase, Total LAB 02/25/25 Complete 01:12 Ct Head/Brain W/O CT 02/25/25 Taken Contrast 01:12 Carbamazepine LAB 02/25/25 Complete (Tegretol) 01:12 Drug Screen Urine LAB 02/25/25 Complete 01:23 0.9%Nacl 1000ml (Ns PHA 02/25/25 Complete 1000ml) 01:30 Current Medications Medications (Trade) Dose Ordered Sig/Rebekah Route PRN Reason Start Time Stop Time Status Last Admin Dose Admin Sodium Chloride 1,000 ml @ 0 mls/hr ONCE ONCE IV 02/25/25 01:30 02/25/25 01:31 DC 02/25/25 03:00 Vital Signs Date Time Temp Pulse Resp B/P (MAP) Pulse Ox O2 Delivery O2 Flow Rate FiO2 02/25/25 01:12 96.8 79 20 142/96 94 Room Air 0 02/25/25 01:02 96.8 79 20 142/96 95 Room Air* 0 21 Medical Decision Making MDM 54-year-old male with a history of seizure on lacosamide, carbamazepine, Keppra at home who was brought to the ER after on episode of seizure home with a reports of hitting his head during the episode. No family was bedside to give more information. Patient was brought by brought in law who was left from the hospital prior my evaluation. 1. SEIZURE EPISODE ORDERED LABORATORY WORKUP INCLUDING CBC, BNP, CK LEVELS. ORDERED ANTICONVULSIVE MEDICATION LEVEL TELE NEUROLOGY CONSULT 1 L OF FLUIDS FOR HYDRATION IV ORDERED WE WILL FOLLOW RECOMMENDATION FROM NEUROLOGIST. -EEG -MRI brain -swallow evaluation -PT/OT evaluation -seizure precautions I discussed with the patient regarding transfer to a facility for further neuro workup EEG test. But patient states that he he will leave against medical advice since he has to be with a his mom. But he said that he will follow up with a neurologist as outpatient. I explained the risk of patient leaving against medical advice and the risk to have a new episode of seizure. Patient stated that he understood and politely he says that I sorry I understand but I will have to live against medical advice. DX & DISP Disposition: AMA Departure Impression: Primary Impression: Recurrent seizures Additional Impressions: Fall, Seizure Condition: Stable Referrals: KIMMY GAVIN DO (PCP) TAYLOR NICHOLAS MD February 25, 2025 01:23
[2025-02-25 01:27] LABS: BASOPHILS # (AUTO) 0.02 K/uL (0.00-0.20); BASOPHILS % (AUTO) 0.5 % (0.0-5.0); EOSINOPHILS # (AUTO) 0.07 K/uL (0.00-0.70); EOSINOPHILS % (AUTO) 1.9 % (0.0-8.0); HEMATOCRIT 37.2 % (42-54); IMMATURE GRANULOCYTE ABSOLUTE 0.01 K/uL (0-1); LYMPHOCYTES # (AUTO) 1.5 K/uL (1.0-4.8); LYMPHOCYTES % (AUTO) 39.7 % (21.0-51.0); MEAN CORPUSCULAR HEMOGLOBIN 33.9 pg (27.0-33.0); MEAN CORPUSCULAR HGB CONC 36.6 g/dL (32.0-36.0); MEAN CORPUSCULAR VOLUME 92.8 fL (79-99); MONOCYTES # (AUTO) 0.5 K/uL (0.1-1.0); NEUTROPHILS # (AUTO) 1.7 K/uL (1.8-7.7); NEUTROPHILS % (AUTO) 45.6 % (40.0-77.0); PLATELET COUNT (AUTO) 152 K/uL (130-400); RED BLOOD CELL COUNT(AUTO) 4.01 MIL/uL (4.50-6.20); RED CELL DISTRIBUTION WIDTH 11.6 % (11.0-15.5); WHITE BLOOD COUNT (AUTO) 3.8 K/uL (4.8-10.8)
[2025-02-25 01:41] LABS: CARBAMAZEPINE (TEGRETOL) 8.3 mcg/mL (4.0-12.0); CREATININE 0.6 mg/dL (0.5-1.3); POTASSIUM 3.5 mmol/L (3.5-5.1)
[2025-02-25 01:48] LABS: PLATELET MORPHOLOGY PLT CLUMPS PRESENT
[2025-02-25 02:48] LABS: AMPHET/METH SCREEN,URINE NEGATIVE (NEGATIVE); BARBITURATE SCREEN, URINE NEGATIVE (NEGATIVE); BENZODIAZEPINES SCREEN,URINE NEGATIVE (NEGATIVE); CANNABINOID SCREEN,URINE NEGATIVE (NEGATIVE); COCAINE SCREEN,URINE NEGATIVE (NEGATIVE); OPIATE SCREEN,URINE NEGATIVE (NEGATIVE); PHENCYCLIDINE SCREEN,URINE NEGATIVE (NEGATIVE)
--- NOTE | 2025-02-25 02:59 | CONS ---
CONSULTATION NOTE DATE OF CONSULTATION: 02/25/25 HISTORY OF PRESENT ILLNESS: [facility] # Demographics Consult Type: General Neurology Patient Location: Emergency Room First Name: ERICKSON Last Name: KATERINA PATTON Date of : 1970 Age: 54 Gender: Male Facility: [facility] Time of Initial Page (Central Time): 02/25/2025 02:45 Time of Return Call (Central Time): 02/25/2025 02:45 # HPI History: Per consult request: "PT HAD SEIZURE HX OF SEIZURES..." Per referring ER Physician Dr. RUIZ, patient on Keppra, carbamazepine & lacosamide as outpatient. Patient reported last seizure was "a couple weeks ago," & reported medication compliance & no recent illnesses. # Scores Time of exam and NIHSS (Central Time): 02/25/2025 02:50 Level of Consciousness 1a: [0] = Alert; keenly responsive LOC Questions 1b: [0] = Answers both questions correctly LOC Commands 1c: [0] = Performs both tasks correctly Best Gaze 2: [0] = Normal Visual 3: [0] = No visual loss Facial Palsy 4: [0] = Normal symmetrical movements Motor Arm Left 5a: [0] = No drift Motor Arm Right 5b: [0] = No drift Motor Leg Left 6a: [0] = No drift Motor Leg Right 6b: [0] = No drift Limb Ataxia 7: [0] = Absent Sensory 8: [0] = Normal Best Language 9: [0] = No aphasia Dysarthria 10: [0] = Normal Extinction and Inattention 11: [0] = No abnormality NIHSS Total: 0 # Exam SBP: 142 DBP: 96 Mental Status: - awake - follows commands - sleepy Limited tele-evaluation due to cognitive status; patient awoke to telepresenter at bedside Language: - normal speech Cranial Nerves: - extra ocular movements intact - no facial droop Motor: - no drift Sensory: - normal sensation to light touch Cerebellar: - normal finger nose Additional Neurologic Exam: Evaluation limited due to observational assessment. In-person exam may be helpful for more subtle signs that cannot be detected via telemedicine. # PMH-FH-SH Social History: non-smoker # Data Glucose: [address]: - no bleed - preliminarily reviewed by me, please refer to radiology read for official reading # Assessment Impression: - Altered Mental Status - Seizure Versus mimic; patient did not appear to be in status during current tele- evaluation # Plan Thrombolytic/Intervention: NOT IV Thrombolysis or IA Intervention candidate Thrombolytic Exclusion (< 3 hour window): - NIHSS = 0 Thrombolytic/Intraarterial Exclusion: - IV thrombolytic and IA intervention considered but not recommended as this patient's symptoms are not clinically consistent with an assumed diagnosis of stroke Labs: - CBC - hemoglobin A1c - lipid panel - ESR - comprehensive metabolic panel - troponin - TSH - urine drug screen - ua - Ammonia - ABG Further toxic/ metabolic/ infectious etiologies evaluation & management as per referring service; anticonvulsant level Imaging: (urgency: routine): - MRI Brain with AND without contrast Seizure protocol, if no medical contraindication Diagnostic Test: - EEG Therapy/Evaluation: - NPO until swallow evaluation - PT/OT evaluation - speech/swallow consultation Fall precautions Medication: Referring ER Physician will attempt to obtain outpatient Neurology records regarding last visit, medications, etc. Other: - telemetry monitoring - seizure precautions - would not pursue stroke work-up if MRI is negative Continued medical evaluation & management as per referring service - If patient has any neurological deterioration please place Follow-up Phone Call Consult (indicating urgency of request in Notes & with STAT head CT results) for on-call teleprovider callback & further discussion - Discussed with referring ER Physician Dr. RUIZ Additional Recommendations: Outpatient Neurology for further evaluation & management as indicated pending hospital course. Discussion & management regarding altered/ loss of consciousness precautions, particularly regarding specific state regulations related to driving, will need to be performed by the referring & Hospital services, as well as outpatient providers. Thank you for allowing us to participate in your patient's care. # Logistics Attestation of consult completion: The patient is located at: [facility]. Facility staff participated in the visit. I performed this telemedicine visit from my offsite office utilizing interactive 2 way audio and visual telecommunication technology. Consent: Verbal consent was obtained from the patient and/or family for this encounter. Total time spent in telemedicine encounter: I spent 30 minutes reviewing clinical data and/or imaging, obtaining history, examining the patient, communicating with the onsite care team, and in preparation of this report. # Demographics First Name: ERICKSON Last Name: KATERINA PATTON Facility: [facility] ALLERGIES: Coded Allergies: phenobarbital (Unverified Allergy, Unknown, 03/05/19) HOME MEDS: Active Scripts Lidocaine (Lidocaine) 4 % Adh..patch, 1 PATCH TP DAILY for 10 Days, #10 PATCH 0 Refills Prov:FELIPE WITT 01/02/25 Acetaminophen (Acetaminophen) 500 Mg Tablet, 1 TAB PO Q6HPRN PRN for pain or fever for 15 Days, #60 TAB 0 Refills Prov:FELIPE WITT 01/02/25 Sulfamethoxazole/Trimethoprim (Bactrim Ds Tablet) 800 Mg-160 Mg Tablet, 1 TAB PO BID for 7 Days, #14 TAB 0 Refills Prov:HAILE GARCIA 07/15/24 Levetiracetam (Keppra) 500 Mg Tablet, 500 MG PO BID for 30 Days, #60 TAB 0 Refills Prov:DAVID BOWMAN MD 03/05/24 Topiramate (Topiramate) 100 Mg Tablet, 100 MG PO BID for 30 Days, #60 TAB Prov:MARY SRIVASTAVA NP 01/31/23 Reported Medications Levetiracetam (Levetiracetam) 1,000 Mg Tablet, 2000 MG PO BID, TAB 01/31/23 Omeprazole (Omeprazole) 40 Mg Capsule.dr, 40 MG PO DAILY, CAP 01/30/23 Loratadine (Loratadine) 10 Mg Tablet, 10 MG PO DAILY for allergy, TAB 01/30/23 Hydrochlorothiazide (Hydrochlorothiazide) 12.5 Mg Tablet, 12.5 MG PO DAILY, TAB 12/28/22 Tamsulosin HCl (Flomax) 0.4 Mg Cap.er.24h, 0.4 MG PO DAILY, CAPSULE.DR 12/28/22 Lacosamide (Lacosamide) 200 Mg Tablet, 200 MG PO BID, TAB 12/28/22 Metoprolol Tartrate (Metoprolol Tartrate) 25 Mg Tablet, 12.5 MG PO BID, TAB 12/28/22 Clonazepam (Clonazepam) 1 Mg Tablet, 1 MG PO BID PRN for AGITATION, TAB 12/18/22 VITAL SIGNS Vital Signs Date Time Temp Pulse Resp B/P (MAP) Pulse Ox O2 Delivery O2 Flow Rate FiO2 02/25/25 01:12 96.8 79 20 142/96 94 Room Air 0 02/25/25 01:02 96.8 79 20 142/96 95 Room Air* 0 21 LABORATORY RESULTS Laboratory Tests 02/25/25 01:10: White Blood Count 3.8, Red Blood Count 4.01, Hemoglobin 13.6, Hematocrit 37.2, Mean Corpuscular Volume 92.8, Mean Corpuscular Hemoglobin 33.9, Mean Corpuscular Hemoglobin Concent 36.6, Red Cell Distribution Width 11.6, Platelet Count 152, Mean Platelet Volume 10.9, Immature Granulocyte % (Auto) 0.3, Neutrophils (%) (Auto) 45.6, Lymphocytes (%) (Auto) 39.7, Monocytes (%) (Auto) 12.0, Eosinophils (%) (Auto) 1.9, Basophils (%) (Auto) 0.5, Neutrophils # (Auto) 1.7, Lymphocytes # (Auto) 1.5, Monocytes # (Auto) 0.5, Eosinophils # (Auto) 0.07, Basophils # (Auto) 0.02, Absolute Immature Granulocyte (auto 0.01, Nucleated Red Blood Cells 0.0, Platelet Morphology PLT CLUMPS PRESENT, Red Blood Cell Morphology ANISO 1+, Sodium Level 131, Potassium Level 3.5, Chloride Level 98, Carbon Dioxide Level 21, Blood Urea Nitrogen 8, Creatinine 0.6, Glomerular Filtration Rate Calc 113, Random Glucose 111, Total Calcium 8.3, Total Creatine Kinase 89, Carbamazepine (Tegretol) Level 8.3 02/25/25 02:29: Urine Opiates Screen NEGATIVE, Urine Barbiturates Screen NEGATIVE, Urine Phencyclidine Screen NEGATIVE, Urine Amphetamines Screen NEGATIVE, Urine Benzodiazepines Screen NEGATIVE, Urine Cocaine Screen NEGATIVE, Urine Marijuana (THC) Screen NEGATIVE SERGIO LEE MD February 25, 2025 02:59
[2025-02-25] MEDS: 0.9%NACL 1000ML 1,000 ML IV ONE (03:00)
--- NOTE | 2025-02-25 04:06 | NUR ---
PT VOICES THE WANT TO LEAVE AMA AT THIS TIME. ED MADE AWARE.
[2025-02-25 04:08] VITALS: BP 114/72; PULSE 59; RESP 16; TEMP 97.4; O2SAT 100
--- NOTE | 2025-02-25 04:11 | NUR ---
PT REQUEST LEAVING AMA. PT IS A&OX4 WITH FULL DECISIONAL CAPACITY. THE PATIENT REPORTS THAT HE UNDERSTANDS HIS CONDITION AND THE RISKS ASSCOICATED WITH LEAVING AMA, INCLUDING BUT NOT LIMITIED TO PERMANENT DISABILITY OR AND HAS BEEN INFORMED TO SEEK MEDICAL SERVICES IN THE EVENT OF AN EMERGENCY. PT VERBILZED UNDERSTANDING OF THE ABOVE STATEMENTS. AMA FORM SIGNED AND IN PATIENT CHART WITNESSED BY YASIR RN (PRIMARY NURSE) AND AG RN (SECONDARY NURSE). VS: BP - 114/72 HR - 59 RR - 16 SAO2 - 100% RA
--- NOTE | 2025-02-25 08:15 | HMCIMG ---
CT HEAD/BRAIN W/O CONTRAST HISTORY: Status post fall COMPARISON: None TECHNIQUE: Multiple sequential axial images of the head were obtained from the base of the skull through vertex. Patient was not given contrast through intravenous route. FINDINGS: The ventricles and extraventricular CSF spaces are nondilated for patient's age. There is no midline shift, mass effect or herniation. No acute intracranial bleed is seen. Visualized portion of the paranasal sinuses are grossly within normal limits. There are bilateral basal ganglia calcification. IMPRESSION: 1. No acute intracranial bleed is seen. CT was performed with one or more following dose reduction techniques: automated exposure control, adjustment of the mA and kv according to patient's size, or use of a iterative reconstruction technique.
== END 2025-02-25 04:24 | disposition left against medical advice (07) ==
LOC: EDH 00:54
DX: G40.909 Epilepsy, unspecified, not intractable, without status epilepticus (principal); Z79.899 Other long term (current) drug therapy
CPT/HCPCS: 99284; 96360; 70450; 80156; 82550; 80048; 80305; 85025; 80235; 36415; 80177; J7030

== ENCOUNTER 2025-03-02 03:08 | Emergency (ER) | payer MEDICARE, MEDICAID ==
[~2025-03-02] VITALS: Ht 167.6 cm; Wt 65.8 kg
--- NOTE | 2025-03-02 03:31 | ERN ---
General Chief Complaint: Multiple Complaints Stated Complaint: DIZZINESS, SOB AND PAIN TO LEFT ARM Time Seen by MD: 03:13 Source: patient History of Present Illness Initial Comments Patient woke up with chest pain and left arm pain and lightheadedness as well as substernal chest pain. He has a history of seizure disorders he has not been taking his clonazepam for a week because he needs to get a refill of his prescription. He is also complaining of floaters in his eyes and worries that is a harming her of another seizure. He does not remember the names of his other medications. Timing/Duration: 1-3 hours Allergies: Coded Allergies: phenobarbital (Unverified Allergy, Unknown, 03/05/19) Home Meds Active Scripts Lidocaine (Lidocaine) 4 % Adh..patch, 1 PATCH TP DAILY for 10 Days, #10 PATCH 0 Refills Prov:FELIPE WITT 01/02/25 Acetaminophen (Acetaminophen) 500 Mg Tablet, 1 TAB PO Q6HPRN PRN for pain or fever for 15 Days, #60 TAB 0 Refills Prov:FELIPE WITT 01/02/25 Sulfamethoxazole/Trimethoprim (Bactrim Ds Tablet) 800 Mg-160 Mg Tablet, 1 TAB PO BID for 7 Days, #14 TAB 0 Refills Prov:HAILE GARCIA 07/15/24 Levetiracetam (Keppra) 500 Mg Tablet, 500 MG PO BID for 30 Days, #60 TAB 0 Refills Prov:DAVID BOWMNA MD 03/05/24 Topiramate (Topiramate) 100 Mg Tablet, 100 MG PO BID for 30 Days, #60 TAB Prov:MARY SRIVASTAVA NP 01/31/23 Reported Medications Levetiracetam (Levetiracetam) 1,000 Mg Tablet, 2000 MG PO BID, TAB 01/31/23 Omeprazole (Omeprazole) 40 Mg Capsule., 40 MG PO DAILY, CAP 01/30/23 Loratadine (Loratadine) 10 Mg Tablet, 10 MG PO DAILY for allergy, TAB 01/30/23 Hydrochlorothiazide (Hydrochlorothiazide) 12.5 Mg Tablet, 12.5 MG PO DAILY, TAB 12/28/22 Tamsulosin HCl (Flomax) 0.4 Mg Cap.er.24h, 0.4 MG PO DAILY, CAPSULE. 12/28/22 Lacosamide (Lacosamide) 200 Mg Tablet, 200 MG PO BID, TAB 12/28/22 Metoprolol Tartrate (Metoprolol Tartrate) 25 Mg Tablet, 12.5 MG PO BID, TAB 12/28/22 Clonazepam (Clonazepam) 1 Mg Tablet, 1 MG PO BID PRN for AGITATION, TAB 12/18/22 Past Medical History Past Medical History: Hypertension, Seizure Medical History Other: EPILEPSY Past Surgical History: None Surgical History Other: VAGAL STIMULATOR Social History Social History: Negative, Lives with family Constitutional: (-) chills, (-) diaphoresis, (-) fever, (-) malaise, (-) weakness, (-) other documentation EENTM: (+) blurred vision Respiratory: (-) cough, (-) orthopnea, (-) short of breath, (-) stridor, (-) wheezing, (-) other documentation Cardiovascular: (+) chest pain Gastrointestinal/Abdominal: (-) nausea, (-) vomiting, (-) diarrhea, (-) abdominal pain, (-) abdominal distention, (-) constipation, (-) rectal bleeding, (-) dark stool/melena, (-) other documentation Musculoskeletal: (-) Neck pain, (-) back pain, (-) Flank Pain, (-) joint pain, (-) joint swelling, (-) muscle pain, (-) muscle stiffness, (-) gout, (-) other documentation Skin: (-) laceration, (-) contusion, (-) abrasion, (-) abscess, (-) rash, (-) change in color, (-) change in hair, (-) change in nails, (-) diaphoresis, (-) dryness, (-) other documentation Neuro: (+) weakness Physical Exam General Appearance: (+) mild distress Orientation: (+) alert Head/Face Trauma: No Eye: bilateral eye normal inspection, bilateral eye PERRL, bilateral eye EOMI Ear, Nose, Throat: (+) hearing grossly normal, (+) normal ENT inspection, (+) moist mucous membraine Neck: (+) normal inspection, (+) supple Respiratory: (+) chest non-tender, (+) lungs clear, (+) well ventilated Heart: (+) regular, (+) no gallop Vascular: (+) no edema, (+) normal peripheral pulse Gastrointestinal: (+) soft, (+) non-tender, (+) no organomegaly Results Laboratory and Microbiology Lab and Micro Result Laboratory Tests Test 03/02/25 03:45 03/02/25 05:25 White Blood Count 3.3 K/uL (4.8-10.8) L Red Blood Count 4.10 MIL/uL (4.50-6.20) L Hemoglobin 13.8 g/dL (14.0-18.0) L Hematocrit 38.8 % (42-54) L Mean Corpuscular Volume 94.6 fL (79-99) Mean Corpuscular Hemoglobin 33.7 pg (27.0-33.0) H Mean Corpuscular Hemoglobin Concent 35.6 g/dL (32.0-36.0) Red Cell Distribution Width 11.8 % (11.0-15.5) Platelet Count 148 K/uL (130-400) Mean Platelet Volume 10.2 fL (7.5-10.5) Immature Granulocyte % (Auto) 0.3 % (0-1) Neutrophils (%) (Auto) 53.0 % (40.0-77.0) Lymphocytes (%) (Auto) 31.7 % (21.0-51.0) Monocytes (%) (Auto) 11.7 % (3.0-13.0) Eosinophils (%) (Auto) 2.4 % (0.0-8.0) Basophils (%) (Auto) 0.9 % (0.0-5.0) Neutrophils # (Auto) 1.8 K/uL (1.8-7.7) Lymphocytes # (Auto) 1.1 K/uL (1.0-4.8) Monocytes # (Auto) 0.4 K/uL (0.1-1.0) Eosinophils # (Auto) 0.08 K/uL (0.00-0.70) Basophils # (Auto) 0.03 K/uL (0.00-0.20) Absolute Immature Granulocyte (auto 0.01 K/uL (0-1) Nucleated Red Blood Cells 0.0 % (0.0-0.19) Sodium Level 136 mmol/L (136-145) Potassium Level 3.6 mmol/L (3.5-5.1) Chloride Level 104 mmol/L (101-111) Carbon Dioxide Level 25 mmol/L (21-32) Blood Urea Nitrogen 12 mg/dL (7-18) Creatinine 0.7 mg/dL (0.5-1.3) Glomerular Filtration Rate Calc 107 mL/min (>90) Random Glucose 105 mg/dL (70-105) Total Calcium 8.5 mg/dL (8.5-10.1) Total Bilirubin 0.2 mg/dL (0.2-1.0) Aspartate Amino Transf (AST/SGOT) 12 U/L (10-37) Alanine Aminotransferase (ALT/SGPT) 18 U/L (12-78) Alkaline Phosphatase 128 U/L (50-136) Troponin I High Sensitivity 7 ng/L (4-75) Total Protein 6.5 g/dL (6.0-8.3) Albumin 3.7 g/dL (3.5-5.0) Procalcitonin < 0.05 ng/mL (0.05-0.5) L Urine Color COLORLESS (YELLOW) Urine Appearance CLEAR (CLEAR) Urine pH 6.5 (5.0-8.0) Urine Specific [place] 1.007 (1.001-1.031) Urine Protein NEGATIVE mg/dL (NEGATIVE) Urine Glucose (UA) NEGATIVE mg/dL (NEGATIVE) Urine Ketones NEGATIVE mg/dL (NEGATIVE) Urine Occult Blood NEGATIVE (NEGATIVE) Urine Nitrate NEGATIVE (NEGATIVE) Urine Bilirubin NEGATIVE mg/dL (NEGATIVE) Urine Urobilinogen 0.2 mg/dL (0.2-1.0) Urine Leukocyte Esterase NEGATIVE Marcela/uL Urine Opiates Screen NEGATIVE (NEGATIVE) Urine Barbiturates Screen NEGATIVE (NEGATIVE) Urine Phencyclidine Screen NEGATIVE (NEGATIVE) Urine Amphetamines Screen NEGATIVE (NEGATIVE) Urine Benzodiazepines Screen NEGATIVE (NEGATIVE) Urine Cocaine Screen NEGATIVE (NEGATIVE) Urine Marijuana (THC) Screen NEGATIVE (NEGATIVE) MDM Given patient's nonspecific complaints and me and during answers to my questions I will start a broad workup. Patient's EKG did show possible ST elevations in inferior leads but troponins were negative. Chemistry panel was normal. As was the CBC. And the patient's urine. I think he was dehydrated or anxious. Patient was wondering if it was seizures because he stopped taking his seizure medicine and he specifically mentioned clonazepam. Since he has been off his clonazepam for a month I wonder if this was an anxiety attack. In either case he is not having an acute NV nor does he have any signs of infection. And he can go home. ED Course Orders Procedure Category Date Status Time 12 Lead Ekg Tracing- EKG 03/02/25 Logged Technical 03:31 Cbc With Differential LAB 03/02/25 Complete 03:31 Comprehensive LAB 03/02/25 Complete Metabolic Panel 03:31 Troponin I High LAB 03/02/25 Complete Sensitivity 03:31 Urinalysis Profile LAB 03/02/25 Complete 03:31 Drug Screen Urine LAB 03/02/25 Complete 03:31 Procalcitonin LAB 03/02/25 Complete 03:31 Lactated Ringers PHA 03/02/25 Complete 1000ml (Lactated 03:31 Current Medications Medications (Trade) Dose Ordered Sig/Rebekah Route PRN Reason Start Time Stop Time Status Last Admin Dose Admin Lactated Ringer's (Lactated Ringers 1000ml) 1,000 ml BOLUS STAT IV 03/02/25 03:31 03/02/25 03:37 DC 03/02/25 03:40 Vital Signs Date Time Temp Pulse Resp B/P (MAP) Pulse Ox O2 Delivery O2 Flow Rate FiO2 03/02/25 04:54 70 17 127/80 100 Room Air* 0 21 03/02/25 03:32 98.4 70 18 119/80 100 Room Air* 0 21 03/02/25 03:12 98.2 94 16 161/85 99 Room Air DX & DISP Disposition: Discharge Departure Impression: Primary Impression: Chest pain Condition: Stable Additional Instructions: Please see your primary care physician about refilling all of your antiseizure medication prescriptions. Also stay hydrated in his hot weather. Referrals: KIMMY GAVIN DO (PCP) YUMIKO PORTER MD Mar 02, 2025 03:31
[2025-03-02] MEDS: LACTATED RINGERS 1000ML IV STA (03:40)
[2025-03-02 03:53] LABS: BASOPHILS # (AUTO) 0.03 K/uL (0.00-0.20); BASOPHILS % (AUTO) 0.9 % (0.0-5.0); EOSINOPHILS # (AUTO) 0.08 K/uL (0.00-0.70); EOSINOPHILS % (AUTO) 2.4 % (0.0-8.0); HEMATOCRIT 38.8 % (42-54); IMMATURE GRANULOCYTE ABSOLUTE 0.01 K/uL (0-1); LYMPHOCYTES # (AUTO) 1.1 K/uL (1.0-4.8); LYMPHOCYTES % (AUTO) 31.7 % (21.0-51.0); MEAN CORPUSCULAR HEMOGLOBIN 33.7 pg (27.0-33.0); MEAN CORPUSCULAR HGB CONC 35.6 g/dL (32.0-36.0); MEAN CORPUSCULAR VOLUME 94.6 fL (79-99); MONOCYTES # (AUTO) 0.4 K/uL (0.1-1.0); MONOCYTES % (AUTO) 11.7 % (3.0-13.0); NEUTROPHILS # (AUTO) 1.8 K/uL (1.8-7.7); PLATELET COUNT (AUTO) 148 K/uL (130-400); RED CELL DISTRIBUTION WIDTH 11.8 % (11.0-15.5); WHITE BLOOD COUNT (AUTO) 3.3 K/uL (4.8-10.8)
[2025-03-02 04:02] LABS: CREATININE 0.7 mg/dL (0.5-1.3); POTASSIUM 3.6 mmol/L (3.5-5.1)
[2025-03-02 04:07] LABS: ALBUMIN 3.7 g/dL (3.5-5.0); BILIRUBIN,TOTAL 0.2 mg/dL (0.2-1.0); TOTAL PROTEIN, SERUM 6.5 g/dL (6.0-8.3)
[2025-03-02 05:39] LABS: APPEARANCE,URINE CLEAR (CLEAR); BILIRUBIN,URINE NEGATIVE (NEGATIVE); COLOR,URINE COLORLESS (YELLOW); GLUCOSE, URINE (UA) NEGATIVE (NEGATIVE); KETONES,URINE NEGATIVE (NEGATIVE); LEUKOCYTE ESTERASE ,URINE NEGATIVE Leu/uL (NEGATIVE); NITRATE,URINE NEGATIVE (NEGATIVE); OCCULT BLOOD,URINE NEGATIVE (NEGATIVE); PH,URINE 6.5 (5.0-8.0); PROTEIN,URINE NEGATIVE (NEGATIVE); UROBILINOGEN,URINE 0.2 mg/dL (0.2-1.0)
[2025-03-02 05:42] LABS: ADD UA MICROSCOPIC NO
[2025-03-02 05:49] LABS: AMPHET/METH SCREEN,URINE NEGATIVE (NEGATIVE); BARBITURATE SCREEN, URINE NEGATIVE (NEGATIVE); BENZODIAZEPINES SCREEN,URINE NEGATIVE (NEGATIVE); CANNABINOID SCREEN,URINE NEGATIVE (NEGATIVE); COCAINE SCREEN,URINE NEGATIVE (NEGATIVE); OPIATE SCREEN,URINE NEGATIVE (NEGATIVE); PHENCYCLIDINE SCREEN,URINE NEGATIVE (NEGATIVE)
[2025-03-02 06:13] VITALS: BP 144/83; PULSE 70; RESP 18; TEMP 98.3; O2SAT 97
--- NOTE | 2025-03-02 06:47 | EKG ---
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
== END 2025-03-02 06:19 | disposition home or self-care (01) ==
LOC: EDH 03:08
DX: R07.89 Other chest pain (principal); I10 Essential (primary) hypertension; G40.909 Epilepsy, unspecified, not intractable, without status epilepticus; Z79.899 Other long term (current) drug therapy
CPT/HCPCS: 99284; 84484; 80053; 80305; 85025; 36415; 93005; 84145; 81003; J7120

== ENCOUNTER 2025-03-03 08:40 | Emergency (ER) | payer MEDICARE, MEDICAID ==
[~2025-03-03] VITALS: Ht 167.6 cm; Wt 63.5 kg
[2025-03-03] MEDS: LACTATED RINGERS 1000ML 1,000 ML IV ONE (09:15)
[2025-03-03 09:27] LABS: BASOPHILS # (AUTO) 0.04 K/uL (0.00-0.20); EOSINOPHILS # (AUTO) 0.11 K/uL (0.00-0.70); EOSINOPHILS % (AUTO) 2.8 % (0.0-8.0); HEMATOCRIT 38.7 % (42-54); LYMPHOCYTES # (AUTO) 1.5 K/uL (1.0-4.8); LYMPHOCYTES % (AUTO) 37.3 % (21.0-51.0); MEAN CORPUSCULAR HEMOGLOBIN 32.8 pg (27.0-33.0); MEAN CORPUSCULAR HGB CONC 34.9 g/dL (32.0-36.0); MEAN CORPUSCULAR VOLUME 93.9 fL (79-99); MONOCYTES # (AUTO) 0.4 K/uL (0.1-1.0); MONOCYTES % (AUTO) 10.3 % (3.0-13.0); NEUTROPHILS # (AUTO) 1.9 K/uL (1.8-7.7); NEUTROPHILS % (AUTO) 48.6 % (40.0-77.0); PLATELET COUNT (AUTO) 155 K/uL (130-400); RED BLOOD CELL COUNT(AUTO) 4.12 MIL/uL (4.50-6.20); RED CELL DISTRIBUTION WIDTH 11.9 % (11.0-15.5); WHITE BLOOD COUNT (AUTO) 3.9 K/uL (4.8-10.8)
[2025-03-03 09:32] LABS: CARBON DIOXIDE 20 mmol/L (21-32); CHLORIDE 105 mmol/L (101-111); CREATININE 0.6 mg/dL (0.5-1.3); GLOMERULAR FILTR. RATE CALC 113 mL/min (>90); GLUCOSE,RANDOM 109 mg/dL (70-105); POTASSIUM 3.7 mmol/L (3.5-5.1); SODIUM SERUM 135 mmol/L (136-145); UREA NITROGEN, BLOOD 13 mg/dL (7-18)
[2025-03-03 09:37] LABS: CREATINE KINASE, TOTAL 54 U/L (21-232)
[2025-03-03 09:38] LABS: PHENYTOIN (DILANTIN) < 0.5 mcg/mL (10.0-20.0)
[2025-03-03 10:54] LABS: AMPHET/METH SCREEN,URINE NEGATIVE (NEGATIVE); BARBITURATE SCREEN, URINE NEGATIVE (NEGATIVE); BENZODIAZEPINES SCREEN,URINE NEGATIVE (NEGATIVE); CANNABINOID SCREEN,URINE NEGATIVE (NEGATIVE); COCAINE SCREEN,URINE NEGATIVE (NEGATIVE); OPIATE SCREEN,URINE NEGATIVE (NEGATIVE); PHENCYCLIDINE SCREEN,URINE NEGATIVE (NEGATIVE)
[2025-03-03] MEDS ORDERED: leveTIRACEtam 500 MG/5 ML SD VIAL IV ONE (11:00)
--- NOTE | 2025-03-03 11:01 | ERN ---
General Chief Complaint: Seizure Stated Complaint: UNWITNESSED SEIZURE Time Seen by MD: 08:42 Source: patient History of Present Illness Initial Comments Patient is a 55-year-old male coming in complaining of seizures. That today while having a seizure he decided to call his daughter for help. He states that he was talking to his daughter while having a seizure. He also states that he has not followed up with his neurologist or PCP in some time. Patient states he is here also for a neurological referral. Allergies: Coded Allergies: phenobarbital (Unverified Allergy, Unknown, 03/05/19) Home Meds Active Scripts Lidocaine (Lidocaine) 4 % Adh..patch, 1 PATCH TP DAILY for 10 Days, #10 PATCH 0 Refills Prov:FELIPE WITT 01/02/25 Acetaminophen (Acetaminophen) 500 Mg Tablet, 1 TAB PO Q6HPRN PRN for pain or fever for 15 Days, #60 TAB 0 Refills Prov:FELIPE WITT 01/02/25 Sulfamethoxazole/Trimethoprim (Bactrim Ds Tablet) 800 Mg-160 Mg Tablet, 1 TAB PO BID for 7 Days, #14 TAB 0 Refills Prov:HAILE GARCIA 07/15/24 Levetiracetam (Keppra) 500 Mg Tablet, 500 MG PO BID for 30 Days, #60 TAB 0 Refills Prov:DAVID BOWMAN MD 03/05/24 Topiramate (Topiramate) 100 Mg Tablet, 100 MG PO BID for 30 Days, #60 TAB Prov:MARY SRIVASTAVA NP 01/31/23 Reported Medications Levetiracetam (Levetiracetam) 1,000 Mg Tablet, 2000 MG PO BID, TAB 01/31/23 Omeprazole (Omeprazole) 40 Mg Capsule.dr, 40 MG PO DAILY, CAP 01/30/23 Loratadine (Loratadine) 10 Mg Tablet, 10 MG PO DAILY for allergy, TAB 01/30/23 Hydrochlorothiazide (Hydrochlorothiazide) 12.5 Mg Tablet, 12.5 MG PO DAILY, TAB 12/28/22 Tamsulosin HCl (Flomax) 0.4 Mg Cap.er.24h, 0.4 MG PO DAILY, CAPSULE. 12/28/22 Lacosamide (Lacosamide) 200 Mg Tablet, 200 MG PO BID, TAB 12/28/22 Metoprolol Tartrate (Metoprolol Tartrate) 25 Mg Tablet, 12.5 MG PO BID, TAB 12/28/22 Clonazepam (Clonazepam) 1 Mg Tablet, 1 MG PO BID PRN for AGITATION, TAB 12/18/22 Past Medical History Past Medical History: No Pertinent History Medical History Other: EPILEPSY, Past Surgical History: Pacer/AICD Surgical History Other: VAGAL STIMULATOR Social History Social History: Negative, Lives with family ROS Dictation CONSTITUTIONAL: No chills, no fever, no weakness, no diaphoresis, no malaise. HEAD/FACE: No signs of trauma. EENT: No eye pain, no blurred vision, no tearing, no double vision, no ear pain, no ear discharge, no nose pain, no nasal congestion, no throat pain, no throat swelling, no mouth pain. RESPIRATORY: No cough, no orthopnea, no SOB, no stridor, no wheezing. CARDIOVASCULAR: No chest pain, no edema, no palpitations, no syncope. GASTROINTESTINAL/ABDOMINAL: No abdominal pain, no constipation, no diarrhea, no nausea, no vomiting. GENITOURINARY: No abnormal discharge, no dysuria, no frequent urination, no hematuria. No complaints of pain in the genitals. MUSCULOSKELETAL: No back pain, no gout, no joint pain, no joint swelling, no muscle pain, no muscle stiffness, no neck pain. INTEGUMENTARY: No change in color, no change in hair/nails, no dryness, no lesion, no lumps, no rash. NEUROLOGICAL/PSYCH: No anxiety, not depressed, no emotional problem, no headache, no numbness, no pre-existing deficit, no history of seizures, no tremors, no weakness. HEMATOLOGIC/LYMPHATIC: Not anemic, no history of blood clots, no apparent bleeding, no bruising, glands not swollen. All Systems Negative, Except as Noted. Physical Exam Physical Exam Dictation VITAL SIGNS: Reviewed. GENERAL APPEARANCE: Alert, oriented x3, no acute distress, obese. HEAD AND FACE: Non-traumatic. EYES: PERRL, pink conjunctivas, eyelid no trauma, anterior chamber clear. EARS: Pinnas intact and no signs of trauma or erythema. Ear canals clear and no discharge. TMs no erythema. NOSE: No discharge, no bleeding. OROPHARYNX: Mouth normal, teeth no caries, tongue pink. Pharynx clear, no erythema. Tonsils no exudates, no abscesses noted. Mucous membrane moist. NECK: Supple, non-tender, no thyromegaly, no masses, no JVD, no bruits. BREAST: Deferred. CHEST: No tenderness, no crepitus, no paradoxical movement, no retractions. LUNGS: Clear, well-ventilated, symmetric, no rales, no wheezing, no rhonchi, no stridor, good breath sounds bilaterally. HEART: Regular rate, regular rhythm, no murmur, no gallops. VASCULAR: No peripheral edema. ABDOMEN: Soft, positive bowel sounds, nondistended, no guarding, nontender, no rebound, no masses no hepatomegaly, no splenomegaly, no Kulkarni's sign, no hernias. RECTAL: Deferred. GENITAL: Deferred. NEUROLOGICAL: Normal speech, gross motor function intact, gross sensory function intact. MUSCULOSKELETAL: Neck nontender, full range of motion, back nontender, full range of motion. EXTREMITIES: Nontender, full range of motion. SKIN: Color pink, dry, no turgor, no rash, no lacerations, no abrasions, no contusions. LYMPHATICS: Deferred. Results Laboratory and Microbiology Lab and Micro Result Laboratory Tests Test 03/03/25 09:05 03/03/25 10:16 White Blood Count 3.9 K/uL (4.8-10.8) L Red Blood Count 4.12 MIL/uL (4.50-6.20) L Hemoglobin 13.5 g/dL (14.0-18.0) L Hematocrit 38.7 % (42-54) L Mean Corpuscular Volume 93.9 fL (79-99) Mean Corpuscular Hemoglobin 32.8 pg (27.0-33.0) Mean Corpuscular Hemoglobin Concent 34.9 g/dL (32.0-36.0) Red Cell Distribution Width 11.9 % (11.0-15.5) Platelet Count 155 K/uL (130-400) Mean Platelet Volume 10.7 fL (7.5-10.5) H Immature Granulocyte % (Auto) 0.0 % (0-1) Neutrophils (%) (Auto) 48.6 % (40.0-77.0) Lymphocytes (%) (Auto) 37.3 % (21.0-51.0) Monocytes (%) (Auto) 10.3 % (3.0-13.0) Eosinophils (%) (Auto) 2.8 % (0.0-8.0) Basophils (%) (Auto) 1.0 % (0.0-5.0) Neutrophils # (Auto) 1.9 K/uL (1.8-7.7) Lymphocytes # (Auto) 1.5 K/uL (1.0-4.8) Monocytes # (Auto) 0.4 K/uL (0.1-1.0) Eosinophils # (Auto) 0.11 K/uL (0.00-0.70) Basophils # (Auto) 0.04 K/uL (0.00-0.20) Absolute Immature Granulocyte (auto 0.00 K/uL (0-1) Nucleated Red Blood Cells 0.0 % (0.0-0.19) Sodium Level 135 mmol/L (136-145) L Potassium Level 3.7 mmol/L (3.5-5.1) Chloride Level 105 mmol/L (101-111) Carbon Dioxide Level 20 mmol/L (21-32) L Blood Urea Nitrogen 13 mg/dL (7-18) Creatinine 0.6 mg/dL (0.5-1.3) Glomerular Filtration Rate Calc 113 mL/min (>90) Random Glucose 109 mg/dL (70-105) H Total Calcium 8.4 mg/dL (8.5-10.1) L Total Creatine Kinase 54 U/L (21-232) # Phenytoin (Dilantin) Level < 0.5 mcg/mL (10.0-20.0) L Valproic Acid (Depakene) Level < 3 mcg/mL (50-100) L Urine Opiates Screen NEGATIVE (NEGATIVE) Urine Barbiturates Screen NEGATIVE (NEGATIVE) Urine Phencyclidine Screen NEGATIVE (NEGATIVE) Urine Amphetamines Screen NEGATIVE (NEGATIVE) Urine Benzodiazepines Screen NEGATIVE (NEGATIVE) Urine Cocaine Screen NEGATIVE (NEGATIVE) Urine Marijuana (THC) Screen NEGATIVE (NEGATIVE) Labs Reviewed?: Yes MDM MDM: Differential diagnosis: Seizures, history of seizures, Rationale: Tests considered and ordered secondary to shared decision making include: Previous outside records reviewed: Old ER visits. Risk of complication and/or morbidity or mortality of patient management: None Medications-Per medication reconciliation Patient is a 55-year-old gentleman coming in due to seizure-like activity this is states that this is has a upon felt very sleepy. Throughout ER visit patient has been resting and states he feels better off with the consists currently to the says medications seizure. ED Course Orders Procedure Category Date Status Time Cbc With Differential LAB 03/03/25 Complete 09:00 Phenytoin (Ayden) In LAB 03/03/25 Complete House 09:00 Lactated Ringers PHA 03/03/25 In Process 1000ml (Lactated 09:00 Basic Metabolic Panel LAB 03/03/25 Complete 09:00 Drug Screen Urine LAB 03/03/25 Complete 09:03 Creatine Kinase, Total LAB 03/03/25 Complete 09:05 Valproic Acid LAB 03/03/25 Complete 09:05 Levetiracetam 500 PHA 03/03/25 Complete Mg/5 [address] V (Keppra 5 11:00 Current Medications Medications (Trade) Dose Ordered Sig/Rebekah Route PRN Reason Start Time Stop Time Status Last Admin Dose Admin Lactated Ringer's 1,000 ml @ 125 mls/hr ONCE ONCE IV 03/03/25 09:00 03/03/25 16:59 03/03/25 09:15 Levetiracetam (kepPRA 500 MG/5 ML SD VIAL) 500 mg ONCE ONCE IV 03/03/25 11:00 03/03/25 11:03 DC Vital Signs Date Time Temp Pulse Resp B/P (MAP) Pulse Ox O2 Delivery O2 Flow Rate FiO2 03/03/25 09:10 98.1 73 19 93/59 65 Room Air* 0 21 03/03/25 08:42 97.5 82 16 101/68 98 Room Air 0 DX & DISP Disposition: Discharge (He states that he needs a follow up) Departure Impression: Primary Impression: Breakthrough seizure Condition: Stable Additional Instructions: FOLLOW-UP WITH PRIMARY CARE PROVIDER IN 1 TO 2 DAYS. TAKE MEDICATIONS DIRECTED HERE IN THE EMERGENCY ROOM. OKAY TO CONTINUE HOME MEDICATIONS UNLESS OTHERWISE DISCUSSED DURING YOUR VISIT IN THE EMERGENCY ROOM TODAY. RETURN TO YOUR NEAREST EMERGENCY ROOM IF SYMPTOMS WORSEN OR IF THERE IS NO IMPROVEMENT. CALL 911 IF YOU NEED IMMEDIATE ASSISTANCE. TAKE TYLENOL [id number] NEEDED AND IF NO CONTRAINDICATIONS ARE PRESENT. INCREASE ORAL HYDRATION. A WOUND CULTURE OR URINE CULTURE WAS ORDERED HERE IN THE EMERGENCY ROOM DEPARTMENT PLEASE FOLLOW-UP WITH PRIMARY CARE PROVIDER AND ADVISE THEM TO GET REPEAT PORTS FROM OUR FACILITY. IF YOU HAD ANY PRINCE WRAP/SPLINTS THAT WERE APPLIED HERE, PLEASE DO NOT REMOVE THEM UNTIL YOU SEE YOUR PRIMARY CARE OR SPECIALTY. Referrals:\ Referrals: KIMMY GAVIN DO (PCP) AXEL ARNOLD MD Time of Disposition: 11:08 DAVID BOWMAN MD Mar 03, 2025 11:01
[2025-03-03 11:38] VITALS: BP 122/79; PULSE 64; RESP 16; TEMP 98.3; O2SAT 100
== END 2025-03-03 11:40 | disposition home or self-care (01) ==
LOC: EDH 08:40
DX: G40.909 Epilepsy, unspecified, not intractable, without status epilepticus (principal); Z79.899 Other long term (current) drug therapy; Z95.810 Presence of automatic (implantable) cardiac defibrillator; Z20.822 Contact with and (suspected) exposure to COVID-19
CPT/HCPCS: 99283; 96360; 80164; 82550; 80185; 80048; 80305; 85025; 36415; J7120; J1953

== ENCOUNTER 2025-08-12 03:18 | Emergency (ER) | payer MEDICARE, MEDICAID ==
[~2025-08-12] VITALS: Ht 170.2 cm; Wt 81.6 kg
[~2025-08-12 03:18] MED LIST changes: +LACO200T14 PO; -LACO200T4 PO
--- NOTE | 2025-08-12 03:25 | ERN ---
General Chief Complaint: Seizure Stated Complaint: C/O SEIZURE Time Seen by MD: 03:19 History of Present Illness Initial Comments 55-year-old male history of epilepsy here for an active seizure/breakthrough seizure episodes. Patient states he has regular seizures daily basis however he was unable to stop the current seizure was having difficulty doing his daily activities. He was dropped off by his daughter.No fever no cough no shortness a breath. Does state he has a cough and has had more anxiety over the past few days which may have triggered the seizure. He does state that the seizure was unwitnessed did hit his head. Allergies: Coded Allergies: phenobarbital (Unverified Allergy, Unknown, 03/05/19) Home Meds Active Scripts Lidocaine (Lidocaine) 4 % Adh..patch, 1 PATCH TP DAILY for 10 Days, #10 PATCH 0 Refills Prov:FELIPE WITT 01/02/25 Acetaminophen (Acetaminophen) 500 Mg Tablet, 1 TAB PO Q6HPRN PRN for pain or fever for 15 Days, #60 TAB 0 Refills Prov:FELIPE WITT I PAC 01/02/25 Sulfamethoxazole/Trimethoprim (Bactrim Ds Tablet) 800 Mg-160 Mg Tablet, 1 TAB PO BID for 7 Days, #14 TAB 0 Refills Prov:HAILE GARCIA 07/15/24 Levetiracetam (Keppra) 500 Mg Tablet, 500 MG PO BID for 30 Days, #60 TAB 0 Refills Prov:DAVID BOWMAN MD 03/05/24 Topiramate (Topiramate) 100 Mg Tablet, 100 MG PO BID for 30 Days, #60 TAB Prov:[facility] 01/[facility]/23 Reported Medications Levetiracetam (Levetiracetam) 1,000 Mg Tablet, 2000 MG PO BID, TAB 01/31/23 Omeprazole (Omeprazole) 40 Mg Capsule.dr, 40 MG PO DAILY, CAP 01/30/23 Loratadine (Loratadine) 10 Mg Tablet, 10 MG PO DAILY for allergy, TAB 01/30/23 Hydrochlorothiazide (Hydrochlorothiazide) 12.5 Mg Tablet, 12.5 MG PO DAILY, TAB 12/28/22 Tamsulosin HCl (Flomax) 0.4 Mg Cap.er.24h, 0.4 MG PO DAILY, CAPSULE. 12/28/22 Lacosamide (Lacosamide) 200 Mg Tablet, 200 MG PO BID, TAB 12/28/22 Metoprolol Tartrate (Metoprolol Tartrate) 25 Mg Tablet, 12.5 MG PO BID, TAB 12/28/22 Clonazepam (Clonazepam) 1 Mg Tablet, 1 MG PO BID PRN for AGITATION, TAB 12/18/22 Past Medical History Past Medical History: Seizure Medical History Other: HX OF EPILEPSY Past Surgical History: Unknown Surgical History Other: VAGAL STIMULATOR Social History Social History: Negative, Lives with family Results Laboratory and Microbiology Lab and Micro Result Laboratory Tests Test 08/12/25 03:25 08/12/25 05:52 08/12/25 06:00 White Blood Count 5.6 K/uL (4.8-10.8) Red Blood Count 4.27 MIL/uL (4.50-6.20) L Hemoglobin 14.2 g/dL (14.0-18.0) Hematocrit 41.1 % (42-54) L Mean Corpuscular Volume 96.3 fL (79-99) Mean Corpuscular Hemoglobin 33.3 pg (27.0-33.0) H Mean Corpuscular Hemoglobin Concent 34.5 g/dL (32.0-36.0) Red Cell Distribution Width 11.9 % (11.0-15.5) Platelet Count 186 K/uL (130-400) Mean Platelet Volume 10.2 fL (7.5-10.5) Immature Granulocyte % (Auto) 0.2 % (0-1) Neutrophils (%) (Auto) 36.8 % (40.0-77.0) L Lymphocytes (%) (Auto) 49.8 % (21.0-51.0) Monocytes (%) (Auto) 9.1 % (3.0-13.0) Eosinophils (%) (Auto) 3.6 % (0.0-8.0) Basophils (%) (Auto) 0.5 % (0.0-5.0) Neutrophils # (Auto) 2.1 K/uL (1.8-7.7) Lymphocytes # (Auto) 2.8 K/uL (1.0-4.8) Monocytes # (Auto) 0.5 K/uL (0.1-1.0) Eosinophils # (Auto) 0.20 K/uL (0.00-0.70) Basophils # (Auto) 0.03 K/uL (0.00-0.20) Absolute Immature Granulocyte (auto 0.01 K/uL (0-1) Nucleated Red Blood Cells 0.0 % (0.0-0.19) Sodium Level 138 mmol/L (136-145) Potassium Level 3.5 mmol/L (3.5-5.1) Chloride Level 103 mmol/L (101-111) Carbon Dioxide Level 24 mmol/L (21-32) Blood Urea Nitrogen 12 mg/dL (7-18) Creatinine 0.9 mg/dL (0.5-1.3) Glomerular Filtration Rate Calc 100 mL/min (>90) Random Glucose 124 mg/dL (70-105) H Lactic Acid Level 3.7 mmol/L (0.8-2.5) H 1.2 mmol/L (0.8-2.5) Total Calcium 8.7 mg/dL (8.5-10.1) Total Creatine Kinase 91 U/L (21-232) # Carbamazepine (Tegretol) Level 6.7 mcg/mL (4.0-12.0) Urine Opiates Screen NEGATIVE (NEGATIVE) Urine Barbiturates Screen NEGATIVE (NEGATIVE) Urine Phencyclidine Screen NEGATIVE (NEGATIVE) Urine Amphetamines Screen NEGATIVE (NEGATIVE) Urine Benzodiazepines Screen NEGATIVE (NEGATIVE) Urine Cocaine Screen NEGATIVE (NEGATIVE) Urine Marijuana (THC) Screen NEGATIVE (NEGATIVE) EKG/XRAY/US/CT/MRI CT Scan Comment EXAM: Non-contrast CT examination of the Brain CLINICAL HISTORY: History of epilepsy. Fall. TECHNIQUE: Thin collimated axial CT images of the brain were obtained with sagittal and coronal reformatted images also submitted. CT scan is done according to ALARA (As Low as Reasonably Achievable). CONTRAST USED: None. COMPARISON: None provided. FINDINGS: No acute intracranial abnormality is present. No acute cortical infarction, hemorrhage, mass, or mass effect. 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 Physiological calcifications in the bilateral globus pallidus. 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 No hydrocephalus or abnormal extra-axial fluid collections. The posterior fossa is unremarkable. The skull base and calvarium are intact. The included portions of the paranasal sinuses and mastoid air cells are clear. IMPRESSION: No acute intracranial abnormality is present. 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 Recommend a dedicated MRI of the brain with epilepsy protocol for an optimal evaluation. 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 /[facility] 55-year-old male here for breakthrough seizure. Has a history of epilepsy. Labs reassuring. Disposition pending results of urine. Care transition over to Dr. Bowman at the end of my shift MDM: DIFFERENTIAL DIAGNOSIS: Seizure, UTI RATIONALE: TESTS CONSIDERED AND ORDERED SECONDARY TO SHARED DECISION MAKING INCLUDE: PREVIOUS OUTSIDE RECORDS REVIEWED: OLD ER VISITS. RISK OF COMPLICATION AND/OR MORBIDITY OR MORTALITY OF PATIENT MANAGEMENT: NONE MEDICATIONS-PER MEDICATION RECONCILIATION NEED FOR HOSPITALIZATION: PATIENT DOES NOT MEET CRITERIA FOR HOSPITALIZATION. NEED FOR EMERGENCY MAJOR/MINOR SURGERY: NO THERE ARE NO SOCIAL CONCERNS WITH THIS PATIENT. PRESCRIPTION DRUG MANAGEMENT PRESCRIPTIONS WILL INCLUDE SYMPTOMATIC CARE PATIENT'S PRIOR EXTERNAL MEDICAL RECORDS FROM OTHER ER VISITS WERE REVIEWED BY ME INDICATED. PRIOR TESTING AND RESULTS FROM PREVIOUS VISITS WERE REVIEWED. PRIOR TESTS WERE TAKEN INTO ACCOUNT WITH MEDICAL DECISION MAKING AND RESOURCE UTILIZATION, INDEPENDENT HISTORIAN/HISTORIANS WERE USED TO OBTAIN COMPLETE MEDICAL HISTORY. I INDEPENDENTLY INTERPRETED THE TEST THAT WERE PERFORMED, RESULTS WERE REVIEWED BY ME AND CONSIDERED FINDINGS ON RADIOLOGY IF ORDERED. MEDICAL MANAGEMENT AND EXAMINATION INTERPRETATION DISCUSSIONS WERE HAD BY ME WITH OTHER QUALIFIED HEALTHCARE PROFESSIONALS INDICATED FOR THE PATIENT'S CARE. ED Course Orders Procedure Category Date Status Time Levetiracetam 500 PHA 08/12/25 Complete Mg/5 Ml Sd V (Keppra 5 03:30 Lorazepam 2 Mg PHA 08/12/25 Complete (Ativan) 03:30 Cbc With Differential LAB 08/12/25 Complete 03:19 Basic Metabolic Panel LAB 08/12/25 Complete 03:19 Creatine Kinase, Total LAB 08/12/25 Complete 03:19 Lactic Acid LAB 08/12/25 Complete 03:19 Drug Screen Urine LAB 08/12/25 In Process 03:19 Urinalysis Profile LAB 08/12/25 In Process 03:19 Carbamazepine LAB 08/12/25 Complete (Tegretol) 03:21 Topiramate (Topomax) LAB 08/12/25 In Process Level 03:24 Lacosamide (Vimpat) LAB 08/12/25 In Process Level 03:24 Levetiracetam 500 PHA 08/12/25 Complete Mg/5 Ml Sd V (Keppra 5 03:28 0.9%Nacl 1000ml (Ns PHA 08/12/25 In Process 1000ml) 04:00 Ct Head/Brain W/O CT 08/12/25 Resulted Contrast 03:41 Lactic Acid LAB 08/12/25 Complete 05:34 Current Medications Medications (Trade) Dose Ordered Sig/Rebekah Route PRN Reason Start Time Stop Time Status Last Admin Dose Admin Levetiracetam (kepPRA 500 MG/5 ML SD VIAL) 500 mg STK-MED ONCE IV 08/12/25 03:28 08/12/25 03:28 DC Levetiracetam (kepPRA 500 MG/5 ML SD VIAL) 1,000 mg ONCE ONCE IV 08/12/25 03:30 08/12/25 03:34 DC 08/12/25 03:50 Lorazepam (AtiVAN) 2 mg ONCE ONCE IM 08/12/25 03:30 08/12/25 03:34 DC 08/12/25 03:38 Sodium Chloride 1,000 ml @ 0 mls/hr Q0M IV 08/12/25 04:00 09/11/25 03:59 08/12/25 03:38 Vital Signs Date Time Temp Pulse Resp B/P (MAP) Pulse Ox O2 Delivery O2 Flow Rate FiO2 08/12/25 05:42 60 18 127/84 97 Nasal Cannula* 2 28 08/12/25 04:20 69 18 127/84 100 Room Air* 0 21 08/12/25 03:30 98.1 94 28 177/98 97 Nasal Cannula* 2 28 DX & DISP Disposition: Discharge Departure Impression: Primary Impression: Breakthrough seizure Additional Impression: Fall Condition: Stable Referrals: KIMMY GAVIN DO (PCP) NOEMI SPARKS MD Aug 12, 2025 03:25
[2025-08-12 03:35] LABS: IMMATURE GRANULOCYTE ABSOLUTE 0.01 K/uL (0-1); NUCLEATED RED BLOOD CELLS 0.0 % (0.0-0.19); PLATELET COUNT (AUTO) 186 K/uL (130-400); RED BLOOD CELL COUNT(AUTO) 4.27 MIL/uL (4.50-6.20); RED CELL DISTRIBUTION WIDTH 11.9 % (11.0-15.5); WHITE BLOOD COUNT (AUTO) 5.6 K/uL (4.8-10.8)
[2025-08-12] MEDS: 0.9%NACL 1000ML 1,000 ML IV SCH (03:38)
[2025-08-12 03:48] LABS: CREATINE KINASE, TOTAL 91.0 U/L (21-232); CREATININE 0.9 mg/dL (0.5-1.3); GLOMERULAR FILTR. RATE CALC 100.0 mL/min (>90); GLUCOSE,RANDOM 124.0 mg/dL (70-105); SODIUM SERUM 138.0 mmol/L (136-145); UREA NITROGEN, BLOOD 12.0 mg/dL (7-18)
--- NOTE | 2025-08-12 05:00 | HMCIMG ---
EXAM: Non-contrast CT examination of the Brain CLINICAL HISTORY: History of epilepsy. Fall. TECHNIQUE: Thin collimated axial CT images of the brain were obtained with sagittal and coronal reformatted images also submitted. CT scan is done according to ALARA (As Low as Reasonably Achievable). CONTRAST USED: None. COMPARISON: None provided. FINDINGS: No acute intracranial abnormality is present. No acute cortical infarction, hemorrhage, mass, or mass effect. 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 Physiological calcifications in the bilateral globus pallidus. 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 No hydrocephalus or abnormal extra-axial fluid collections. The posterior fossa is unremarkable. The skull base and calvarium are intact. The included portions of the paranasal sinuses and mastoid air cells are clear. IMPRESSION: No acute intracranial abnormality is present. 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 Recommend a dedicated MRI of the brain with epilepsy protocol for an optimal evaluation. 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 /[place]
[2025-08-12 05:42] VITALS: O2SAT 97
[2025-08-12 06:57] LABS: AMPHET/METH SCREEN,URINE NEGATIVE (NEGATIVE); BARBITURATE SCREEN, URINE NEGATIVE (NEGATIVE); CANNABINOID SCREEN,URINE NEGATIVE (NEGATIVE); COCAINE SCREEN,URINE NEGATIVE (NEGATIVE)
[2025-08-12 06:58] LABS: APPEARANCE,URINE CLEAR (CLEAR); GLUCOSE, URINE (UA) NEGATIVE (NEGATIVE); LEUKOCYTE ESTERASE ,URINE NEGATIVE Leu/uL (NEGATIVE); NITRATE,URINE NEGATIVE (NEGATIVE); OCCULT BLOOD,URINE NEGATIVE (NEGATIVE)
[2025-08-12 06:59] LABS: ADD UA MICROSCOPIC NO
[2025-08-12 07:39] VITALS: BP 124/83; PULSE 62; RESP 17; TEMP 98.1
== END 2025-08-12 07:52 | disposition home or self-care (01) ==
LOC: EDH 03:18
DX: G40.909 Epilepsy, unspecified, not intractable, without status epilepticus (principal); Z88.8 Allergy status to other drugs, medicaments and biological substances; Z79.899 Other long term (current) drug therapy
CPT/HCPCS: 99285; 96365; 70450; 96372; 81003; 80156; 82550; 80048; 80305; 85025; 80235; 83605 ×2; 36415; 80201; J1953 ×2; J7030; J2060

== ENCOUNTER 2025-09-24 00:23 | Emergency (ER) | payer MEDICARE, MEDICAID ==
[~2025-09-24] VITALS: Ht 167.6 cm; Wt 79.9 kg
--- NOTE | 2025-09-24 01:10 | HMCIMG ---
EXAM: CR Chest, 1 View. CLINICAL HISTORY: CP COMPARISON: None provided. FINDINGS: LUNGS: The lungs show no infiltrate or other acute finding. PLEURAL SPACES: No pleural effusion or pneumothorax. MEDIASTINUM: The cardiomediastinal silhouette is within normal limits. A battery device located over the left upper chest wall BONES: No acute osseous abnormality. IMPRESSION: No acute cardiopulmonary pathology is evident. /[place]
[2025-09-24 01:12] LABS: IMMATURE GRANULOCYTE ABSOLUTE 0.01 K/uL (0-1); NUCLEATED RED BLOOD CELLS 0.0 % (0.0-0.19); PLATELET COUNT (AUTO) 144 K/uL (130-400); RED BLOOD CELL COUNT(AUTO) 4.27 MIL/uL (4.50-6.20); RED CELL DISTRIBUTION WIDTH 12.0 % (11.0-15.5); WHITE BLOOD COUNT (AUTO) 3.6 K/uL (4.8-10.8)
--- NOTE | 2025-09-24 01:16 | EKG ---
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
--- NOTE | 2025-09-24 01:16 | HMCIMG ---
EXAM: CT Head Without IV contrast. CLINICAL HISTORY: FALL TECHNIQUE: Axial computed tomography images of the head/brain without intravenous contrast. Sagittal and coronal reconstructions are available and reviewed. A CT scan is done according to ALARA (As Low As Reasonably Achievable). COMPARISON: 08/12/2025 FINDINGS: BRAIN: No evidence of acute hemorrhage. No mass lesion. No CT evidence for acute territorial infarct. No midline shift or extra-axial collections. Calcific changes in bilateral basal ganglia. 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 Age-appropriate cerebral volume. VENTRICLES: No hydrocephalus. ORBITS: The orbits are unremarkable. SINUSES AND MASTOIDS: Minimal mucosal thickening in the medial wall of the right maxillary sinus. The nasal septum is deviated towards the left with a hypertrophic spur indenting over the left inferior turbinate. The rest of the paranasal sinuses and mastoid air cells are clear. BONES: No fracture. SOFT TISSUES: Unremarkable. IMPRESSION: No acute intracranial abnormality. Dolichoectatic appearance of the vertebrobasilar trunk. Further evaluation is recommended with MR or CT angiography to look for any underlying aneurysm. /[place]
[2025-09-24 01:20] LABS: CREATININE 0.8 mg/dL (0.5-1.3); GLOMERULAR FILTR. RATE CALC 103.0 mL/min (>90); GLUCOSE,RANDOM 103.0 mg/dL (70-105); SODIUM SERUM 135.0 mmol/L (136-145); UREA NITROGEN, BLOOD 9.0 mg/dL (7-18)
[2025-09-24 01:26] LABS: CREATINE KINASE, TOTAL 59.0 U/L (21-232)
--- NOTE | 2025-09-24 01:31 | ERN ---
General Chief Complaint: Chest Pain Stated Complaint: CHEST PAIN, HEADACHE, L ARM PAIN Time Seen by MD: 00:25 Source: patient History of Present Illness Initial Comments PATIENT IS A 55 COMING IN MULTIPLE COMPLAINTS. WITH THE PATIENT HE HAS BEEN HAVING LEFT-SIDED CHEST PAIN AND HAS A STIMULATOR ON HIS LEFT SIDE OF THE CHEST STATES THAT IN HIS TENDER IN THE AREA. HE ALSO STATES THAT HE DOES HAS A HISTORY OF SEIZURES AND WAS TOLD BEFORE THAT HE HAD SOMETHING ABNORMAL IN HIS BRAIN. Allergies: Coded Allergies: phenobarbital (Unverified Allergy, Unknown, 03/05/19) Home Meds Active Scripts Lidocaine (Lidocaine) 4 % Adh..patch, 1 PATCH TP DAILY for 10 Days, #10 PATCH 0 Refills Prov:FELIPE WITT I PAC 01/02/25 Acetaminophen (Acetaminophen) 500 Mg Tablet, 1 TAB PO Q6HPRN PRN for pain or fever for 15 Days, #60 TAB 0 Refills Prov:FELIPE WITT I PAC 01/02/25 Sulfamethoxazole/Trimethoprim (Bactrim Ds Tablet) 800 Mg-160 Mg Tablet, 1 TAB PO BID for 7 Days, #14 TAB 0 Refills Prov:HAILE GARCIA PAC 07/15/24 Levetiracetam (Keppra) 500 Mg Tablet, 500 MG PO BID for 30 Days, #60 TAB 0 Refills Prov:DAVID BOWMAN MD 03/05/24 Topiramate (Topiramate) 100 Mg Tablet, 100 MG PO BID for 30 Days, #60 TAB Prov:MARY SRIVASTAVA [facility] 01/31/23 Reported Medications Levetiracetam (Levetiracetam) 1,000 Mg Tablet, 2000 MG PO BID, TAB 01/31/23 Omeprazole (Omeprazole) 40 Mg Capsule.dr, 40 MG PO DAILY, CAP 01/30/23 Loratadine (Loratadine) 10 Mg Tablet, 10 MG PO DAILY for allergy, TAB 01/30/23 Hydrochlorothiazide (Hydrochlorothiazide) 12.5 Mg Tablet, 12.5 MG PO DAILY, TAB 12/28/22 Tamsulosin HCl (Flomax) 0.4 Mg Cap.er.24h, 0.4 MG PO DAILY, CAPSULE. 12/28/22 Lacosamide (Lacosamide) 200 Mg Tablet, 200 MG PO BID, TAB 12/28/22 Metoprolol Tartrate (Metoprolol Tartrate) 25 Mg Tablet, 12.5 MG PO BID, TAB 12/28/22 Clonazepam (Clonazepam) 1 Mg Tablet, 1 MG PO BID PRN for AGITATION, TAB 12/18/22 Past Medical History Past Medical History: Asthma, Seizure Medical History Other: HX OF EPILEPSY, TIA Past Surgical History: Unknown Surgical History Other: VAGAL STIMULATOR Social History Social History: Negative, Lives with family ROS Dictation CONSTITUTIONAL: NO CHILLS, NO FEVER, NO WEAKNESS, NO DIAPHORESIS, NO MALAISE. HEAD/FACE: NO SIGNS OF TRAUMA. EENT: NO EYE PAIN, NO BLURRED VISION, NO TEARING, NO DOUBLE VISION, NO EAR PAIN, NO EAR DISCHARGE, NO NOSE PAIN, NO NASAL CONGESTION, NO THROAT PAIN, NO THROAT SWELLING, NO MOUTH PAIN. RESPIRATORY: NO COUGH, NO ORTHOPNEA, NO SOB, NO STRIDOR, NO WHEEZING. CARDIOVASCULAR: CHEST PAIN, NO EDEMA, NO PALPITATIONS, NO SYNCOPE. GASTROINTESTINAL/ABDOMINAL: NO ABDOMINAL PAIN, NO CONSTIPATION, NO DIARRHEA, NO NAUSEA, NO VOMITING. GENITOURINARY: NO ABNORMAL DISCHARGE, NO DYSURIA, NO FREQUENT URINATION, NO HEMATURIA. NO COMPLAINTS OF PAIN IN THE GENITALS. MUSCULOSKELETAL: NO BACK PAIN, NO GOUT, NO JOINT PAIN, NO JOINT SWELLING, NO MUSCLE PAIN, NO MUSCLE STIFFNESS, NO NECK PAIN. INTEGUMENTARY: NO CHANGE IN COLOR, NO CHANGE IN HAIR/NAILS, NO DRYNESS, NO LESION, NO LUMPS, NO RASH. NEUROLOGICAL/PSYCH: NO ANXIETY, NOT DEPRESSED, NO EMOTIONAL PROBLEM, NO HEADACH E, NO NUMBNESS, NO PRE-EXISTING DEFICIT, NO HISTORY OF SEIZURES, NO TREMORS, NO WEAKNESS. HEMATOLOGIC/LYMPHATIC: NOT ANEMIC, NO HISTORY OF BLOOD CLOTS, NO APPARENT BLEEDING, NO BRUISING, GLANDS NOT SWOLLEN. ALL SYSTEMS NEGATIVE, EXCEPT NOTED. Physical Exam Physical Exam Dictation VITAL SIGNS: REVIEWED. GENERAL APPEARANCE: ALERT, ORIENTED X3, NO ACUTE DISTRESS, OBESE. HEAD AND FACE: NON-TRAUMATIC. EYES: PERRL, PINK CONJUNCTIVAS, EYELID NO TRAUMA, ANTERIOR CHAMBER CLEAR. EARS: PINNAS INTACT AND NO SIGNS OF TRAUMA OR ERYTHEMA. EAR CANALS CLEAR AND NO DISCHARGE. TMS NO ERYTHEMA. NOSE: NO DISCHARGE, NO BLEEDING. OROPHARYNX: MOUTH NORMAL, TEETH NO CARIES, TONGUE PINK. PHARYNX CLEAR, NO ERYTHEMA. TONSILS NO EXUDATES, NO ABSCESSES NOTED. MUCOUS MEMBRANE MOIST. NECK: SUPPLE, NON-TENDER, NO THYROMEGALY, NO MASSES, NO JVD, NO BRUITS. BREAST: DEFERRED. CHEST: NO TENDERNESS, NO CREPITUS, NO PARADOXICAL MOVEMENT, NO RETRACTIONS. LUNGS: CLEAR, WELL-VENTILATED, SYMMETRIC, NO RALES, NO WHEEZING, NO RHONCHI, NO STRIDOR, GOOD BREATH SOUNDS BILATERALLY. HEART: REGULAR RATE, REGULAR RHYTHM, NO MURMUR, NO GALLOPS. VASCULAR: NO PERIPHERAL EDEMA. ABDOMEN: SOFT, POSITIVE BOWEL SOUNDS, NONDISTENDED, NO GUARDING, NONTENDER, NO REBOUND, NO MASSES NO HEPATOMEGALY, NO SPLENOMEGALY, NO LENTZ'S SIGN, NO HERNIAS. RECTAL: DEFERRED. GENITAL: DEFERRED. NEUROLOGICAL: NORMAL SPEECH, GROSS MOTOR FUNCTION INTACT, GROSS SENSORY FUNCTION INTACT. MUSCULOSKELETAL: NECK NONTENDER, FULL RANGE OF MOTION, BACK NONTENDER, FULL RANGE OF MOTION. EXTREMITIES: NONTENDER, FULL RANGE OF MOTION. SKIN: COLOR PINK, DRY, NO TURGOR, NO RASH, NO LACERATIONS, NO ABRASIONS, NO CONTUSIONS. LYMPHATICS: DEFERRED. Results Laboratory and Microbiology Lab and Micro Result Laboratory Tests Test 09/24/25 01:05 09/24/25 02:25 White Blood Count 3.6 K/uL (4.8-10.8) L Red Blood Count 4.27 MIL/uL (4.50-6.20) L Hemoglobin 14.0 g/dL (14.0-18.0) Hematocrit 40.8 % (42-54) L Mean Corpuscular Volume 95.6 fL (79-99) Mean Corpuscular Hemoglobin 32.8 pg (27.0-33.0) Mean Corpuscular Hemoglobin Concent 34.3 g/dL (32.0-36.0) Red Cell Distribution Width 12.0 % (11.0-15.5) Platelet Count 144 K/uL (130-400) Mean Platelet Volume 10.3 fL (7.5-10.5) Immature Granulocyte % (Auto) 0.3 % (0-1) Neutrophils (%) (Auto) 42.5 % (40.0-77.0) Lymphocytes (%) (Auto) 45.3 % (21.0-51.0) Monocytes (%) (Auto) 7.8 % (3.0-13.0) Eosinophils (%) (Auto) 3.3 % (0.0-8.0) Basophils (%) (Auto) 0.8 % (0.0-5.0) Neutrophils # (Auto) 1.5 K/uL (1.8-7.7) L Lymphocytes # (Auto) 1.6 K/uL (1.0-4.8) Monocytes # (Auto) 0.3 K/uL (0.1-1.0) Eosinophils # (Auto) 0.12 K/uL (0.00-0.70) Basophils # (Auto) 0.03 K/uL (0.00-0.20) Absolute Immature Granulocyte (auto 0.01 K/uL (0-1) Nucleated Red Blood Cells 0.0 % (0.0-0.19) Sodium Level 135 mmol/L (136-145) L Potassium Level 4.4 mmol/L (3.5-5.1) Chloride Level 104 mmol/L (101-111) Carbon Dioxide Level 26 mmol/L (21-32) Blood Urea Nitrogen 9 mg/dL (7-18) Creatinine 0.8 mg/dL (0.5-1.3) Glomerular Filtration Rate Calc 103 mL/min (>90) Random Glucose 103 mg/dL (70-105) Total Calcium 8.3 mg/dL (8.5-10.1) L Total Creatine Kinase 59 U/L (21-232) # Troponin I High Sensitivity 6 ng/L (4-75) Urine Color Light-Yellow (YELLOW) Urine Appearance CLEAR (CLEAR) Urine pH 7.5 (5.0-8.0) Urine Specific [place] 1.009 (1.001-1.031) Urine Protein NEGATIVE mg/dL (NEGATIVE) Urine Glucose (UA) NEGATIVE mg/dL (NEGATIVE) Urine Ketones NEGATIVE mg/dL (NEGATIVE) Urine Occult Blood NEGATIVE (NEGATIVE) Urine Nitrate NEGATIVE (NEGATIVE) Urine Bilirubin NEGATIVE mg/dL (NEGATIVE) Urine Urobilinogen 0.2 mg/dL (0.2-1.0) Urine Leukocyte Esterase NEGATIVE Marcela/uL Urine Opiates Screen NEGATIVE (NEGATIVE) Urine Barbiturates Screen NEGATIVE (NEGATIVE) Urine Phencyclidine Screen NEGATIVE (NEGATIVE) Urine Amphetamines Screen NEGATIVE (NEGATIVE) Urine Benzodiazepines Screen NEGATIVE (NEGATIVE) Urine Cocaine Screen NEGATIVE (NEGATIVE) Urine Marijuana (THC) Screen NEGATIVE (NEGATIVE) Labs Reviewed?: Yes EKG/XRAY/US/CT/MRI EKG Comment 09/24/2025 time 1:08 a.m. Ventricular rate 65 Sinus rhythm [place] [address] wave elevation or depression X-RAY Comment [address] [place] [address] IMAGING REPORT Signed PATIENT: ERICKSON BORGES III MR#: [id number] : 1970 SEX: M AGE: 55 LOCATION: ED ORDER STATUS: REG ER [facility] REPORT#: [id number] SERVICE REASON: CP ORDERING PHYSICIAN: DAVID BOWMAN MD PROCEDURE: CXR1VW - CHEST 1VW EXAM: CR Chest, 1 View. CLINICAL HISTORY: CP COMPARISON: None provided. FINDINGS: LUNGS: The lungs show no infiltrate or other acute finding. PLEURAL SPACES: No pleural effusion or pneumothorax. MEDIASTINUM: The cardiomediastinal silhouette is within normal limits. A battery device located over the left upper chest wall BONES: No acute osseous abnormality. IMPRESSION: No acute cardiopulmonary pathology is evident. /[place] DICTATED BY: DRE NUNEZ Jr., MD DATE: 09/24/25208 ELECTRONICALLY SIGNED BY: DRE NUNEZ Jr., MD DATE: 09/24/25208 CT Scan Comment IMAGING REPORT Signed PATIENT: ERICKSON BORGES III MR#: [id number] : 1970 SEX: M AGE: 55 LOCATION: [facility] ORDER 2 STATUS: REG ER REPORT#: [id number] SERVICE 1 REASON: ABNORMAL CT HEAD ORDERING PHYSICIAN: DAVID BOWMAN MD PROCEDURE: CTA HEDWWO - CT ANGIO HEAD EXAMINATION CTA Head With Intravenous Contrast HISTORY ABNORMAL CT HEAD (Hx) / ABNORMAL CT HEAD, CTA comments) (DICOM Hx) TECHNIQUE Axial CTA images of the head with intravenous contrast in the arterial phase. Coronal and sagittal reformatted images were generated and reviewed. 3-D reformatted images generated on an independent workstation were also reviewed. NASCET criteria were used in the assessment of stenosis. CONTRAST Contrast injected without incident. COMPARISON None available. FINDINGS: INTERNAL CAROTID ARTERIES The intracranial ICAs are patent with no significant stenosis. No occlusion. No aneurysm. ANTERIOR CEREBRAL ARTERIES No significant stenosis. No occlusion. No aneurysm. MIDDLE CEREBRAL ARTERIES No significant stenosis. No occlusion. No aneurysm. POSTERIOR CEREBRAL ARTERIES No significant stenosis. No occlusion. No aneurysm. BASILAR ARTERY No significant stenosis. No occlusion. 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 VERTEBRAL ARTERIES No significant stenosis. No occlusion. No aneurysm. 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 No hemodynamically significant stenosis in the intracranial arteries. /[place] DICTATED BY: DRE NUNEZ Jr., MD DATE: 09/24/25437 ELECTRONICALLY SIGNED BY: DRE NUNEZ Jr., MD DATE: 09/24/25437 IMAGING REPORT Signed PATIENT: ERICKSON BORGES III MR#: [id number] : 1970 SEX: M AGE: 55 LOCATION: [facility] ORDER STATUS: REG REPORT#: [id number] SERVICE REASON: FALL ORDERING PHYSICIAN: DAVID BOWMAN MD PROCEDURE: HEAD WO - CT HEAD/BRAIN W/O CONTRAST EXAM: CT Head Without IV contrast. CLINICAL HISTORY: FALL TECHNIQUE: Axial computed tomography images of the head/brain without intravenous contrast. Sagittal and coronal reconstructions are available and reviewed. A CT scan is done according to ALARA (As Low As Reasonably Achievable). COMPARISON: 08/12/2025 FINDINGS: BRAIN: No evidence of acute hemorrhage. No mass lesion. No CT evidence for acute territorial infarct. No midline shift or extra-axial collections. Calcific changes in bilateral basal ganglia. 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 Age-appropriate cerebral volume. VENTRICLES: No hydrocephalus. ORBITS: The orbits are unremarkable. SINUSES AND MASTOIDS: Minimal mucosal thickening in the medial wall of the right maxillary sinus. The nasal septum is deviated towards the left with a hypertrophic spur indenting over the left inferior turbinate. The rest of the paranasal sinuses and mastoid air cells are clear. BONES: No fracture. SOFT TISSUES: Unremarkable. IMPRESSION: No acute intracranial abnormality. Dolichoectatic appearance of the vertebrobasilar trunk. Further evaluation is recommended with MR or CT angiography to look for any underlying aneurysm. /[place] DICTATED BY: DRE NUNEZ Jr., MD DATE: 09/24/25215 ELECTRONICALLY SIGNED BY: DRE NUNEZ Jr., MD DATE: 09/24/25215 [facility] MDM: DIFFERENTIAL DIAGNOSIS: Basilar artery aneurysm, headache, history of seizures RATIONALE: TESTS CONSIDERED AND ORDERED SECONDARY TO SHARED DECISION MAKING INCLUDE: PREVIOUS OUTSIDE RECORDS REVIEWED: OLD ER VISITS. RISK OF COMPLICATION AND/OR MORBIDITY OR MORTALITY OF PATIENT MANAGEMENT: NONE MEDICATIONS-PER MEDICATION RECONCILIATION NEED FOR HOSPITALIZATION: PATIENT DOES MEET CRITERIA FOR HOSPITALIZATION. NEED FOR EMERGENCY MAJOR/MINOR SURGERY: NO THERE ARE NO SOCIAL CONCERNS WITH THIS PATIENT. PRESCRIPTION DRUG MANAGEMENT PRESCRIPTIONS WILL INCLUDE SYMPTOMATIC CARE PATIENT'S PRIOR EXTERNAL MEDICAL RECORDS FROM OTHER ER VISITS WERE REVIEWED BY ME INDICATED. PRIOR TESTING AND RESULTS FROM PREVIOUS VISITS WERE REVIEWED. PRIOR TESTS WERE TAKEN INTO ACCOUNT WITH MEDICAL DECISION MAKING AND RESOURCE UTILIZATION, INDEPENDENT HISTORIAN/HISTORIANS WERE USED TO OBTAIN COMPLETE MEDICAL HISTORY. I INDEPENDENTLY INTERPRETED THE TEST THAT WERE PERFORMED, RESULTS WERE REVIEWED BY ME AND CONSIDERED FINDINGS ON RADIOLOGY IF ORDERED. MEDICAL MANAGEMENT AND EXAMINATION INTERPRETATION DISCUSSIONS WERE HAD BY ME WITH OTHER QUALIFIED HEALTHCARE PROFESSIONALS INDICATED FOR THE PATIENT'S CARE. Spoke with the neurosurgeon Dr. Valencia with a accepts patient was [facility], hospitalist dr wade accepts patient. ED Course Orders Procedure Category Date Status Time Cbc With Differential LAB 09/24/25 Complete 00:27 Chest 1vw RAD 09/24/25 Resulted 00:27 12 Lead Ekg Tracing- EKG 09/24/25 Complete Technical 00:27 Creatine Kinase, Total LAB 09/24/25 Complete 00:27 Troponin I High LAB 09/24/25 Complete Sensitivity 00:27 Urinalysis Profile LAB 09/24/25 Complete 00:27 Basic Metabolic Panel LAB 09/24/25 Complete 00:27 Ct Head/Brain W/O CT 09/24/25 Resulted Contrast 00:27 Drug Screen Urine LAB 09/24/25 Complete 00:[address] 09/24/25 Resulted 01:32 Acetaminophen 500mg PHA 09/24/25 In Process Tab (Tylenol 500mg T 05:00 Current Medications Medications (Trade) Dose Ordered Sig/Rebekah Route PRN Reason Start Time Stop Time Status Last Admin Dose Admin Acetaminophen (TYLenol 500MG TAB) 1,000 mg ONCE ONCE PO 09/24/25 05:00 09/24/25 05:01 Vital Signs Date Time Temp Pulse Resp B/P (MAP) Pulse Ox O2 Delivery O2 Flow Rate FiO2 09/24/25 01:48 97.9 88 17 137/56 100 Room Air* 0 21 09/24/25 00:25 96.4 68 20 123/83 100 Room Air DX & DISP Disposition: Transfer Decision to Admit Time: 04:59 Departure Impression: Primary Impression: Aneurysm of basilar artery Condition: Stable Referrals: KIMMY GAVIN DO (PCP) DAVID BOWMAN MD Sep 24, 2025 01:31
--- NOTE | 2025-09-24 01:38 | NUR ---
PT CARE ASSUMED AT THIS TIME
[2025-09-24 02:31] LABS: APPEARANCE,URINE CLEAR (CLEAR); GLUCOSE, URINE (UA) NEGATIVE (NEGATIVE); LEUKOCYTE ESTERASE ,URINE NEGATIVE Leu/uL (NEGATIVE); NITRATE,URINE NEGATIVE (NEGATIVE); OCCULT BLOOD,URINE NEGATIVE (NEGATIVE)
[2025-09-24 02:32] LABS: ADD UA MICROSCOPIC NO
--- NOTE | 2025-09-24 03:39 | HMCIMG ---
EXAMINATION CTA Head With Intravenous Contrast HISTORY ABNORMAL CT HEAD (Hx) / ABNORMAL CT HEAD, CTA comments) (DICOM Hx) TECHNIQUE Axial CTA images of the head with intravenous contrast in the arterial phase. Coronal and sagittal reformatted images were generated and reviewed. 3-D reformatted images generated on an independent workstation were also reviewed. NASCET criteria were used in the assessment of stenosis. CONTRAST Contrast injected without incident. COMPARISON None available. FINDINGS: INTERNAL CAROTID ARTERIES The intracranial ICAs are patent with no significant stenosis. No occlusion. No aneurysm. ANTERIOR CEREBRAL ARTERIES No significant stenosis. No occlusion. No aneurysm. MIDDLE CEREBRAL ARTERIES No significant stenosis. No occlusion. No aneurysm. POSTERIOR CEREBRAL ARTERIES No significant stenosis. No occlusion. No aneurysm. BASILAR ARTERY No significant stenosis. No occlusion. 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 VERTEBRAL ARTERIES No significant stenosis. No occlusion. No aneurysm. 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 No hemodynamically significant stenosis in the intracranial arteries. /[place]
[2025-09-24 03:54] LABS: AMPHET/METH SCREEN,URINE NEGATIVE (NEGATIVE); BARBITURATE SCREEN, URINE NEGATIVE (NEGATIVE); CANNABINOID SCREEN,URINE NEGATIVE (NEGATIVE); COCAINE SCREEN,URINE NEGATIVE (NEGATIVE)
[2025-09-24 05:53] VITALS: BP 123/83; PULSE 65; RESP 16; TEMP 97.8; O2SAT 100
--- NOTE | 2025-09-24 06:05 | NUR ---
PT REPORT GIVEN TO BERNADETTE RODRIGUEZ AT [facility]
--- NOTE | 2025-09-24 06:19 | NUR ---
EMS ARRIVED TO [facility] ER AT THIS TIME.
--- NOTE | 2025-09-24 06:25 | NUR ---
EMS LEFT [facility], [facility].
[2025-09-24] MEDS ORDERED: IOHEXOL-350 75 ML VIAL IV ONE (15:32)
== END 2025-09-24 06:25 | disposition short-term general hospital (02) ==
LOC: EDH 00:23
DX: I72.5 Aneurysm of other precerebral arteries (principal); G40.909 Epilepsy, unspecified, not intractable, without status epilepticus; J45.909 Unspecified asthma, uncomplicated; Z79.899 Other long term (current) drug therapy; Z86.73 Personal history of transient ischemic attack (TIA), and cerebral infarction without residual deficits
CPT/HCPCS: 99285; 70450; 71045; 81003; 82550; 84484; 80048; 80305; 85025; 36415; 70496; 93005; Q9967